=== PATIENT | male | born 1960 | race Caucasian/White ===

== ENCOUNTER 2021-12-17 05:29 | Outpatient (RCR) | payer OTHER ==
[~2021-12-17] VITALS: Ht 177.8 cm; Wt 89.5 kg
[~2021-12-17 05:29] MED LIST: GLMP2T PO; INSU100V5 SQ
== END 2021-12-20 06:49 | disposition home or self-care (01) ==
LOC: PREOP 05:29
PROVIDERS: ATTEND Surgery
DX: Z01.812 Encounter for preprocedural laboratory examination (principal); R10.9 Unspecified abdominal pain; Z20.822 Contact with and (suspected) exposure to COVID-19
CPT/HCPCS: 87635

== ENCOUNTER 2021-12-21 07:57 | Day surgery (SDC) | payer OTHER ==
[~2021-12-21] VITALS: Ht 177.8 cm; Wt 89.5 kg
[2021-12-21] VITALS (7 sets, daily range): BP systolic 97–135; BP diastolic 52–90
[2021-12-21] MEDS ORDERED: LACTATED RINGERS 1,000 ML IV ONE (08:04)
--- NOTE | 2021-12-21 08:10 | Progress Note-Pre Operative ---
Pre-Operative Progress Note H&P Reviewed The H&P was reviewed, patient examined and no changes noted. Date Seen by Provider: Dec 21, 2021 Time Seen by Provider: 08:09 Date H&P Reviewed: Dec 21, 2021 Time H&P Reviewed: 08:10 Pre-Operative Diagnosis: left sided abdominal pain JB LEUNG DO Dec 21, 2021 08:10
[2021-12-21] MEDS ORDERED: LACTATED RINGERS 1,000 ML IV STA (08:16)
[2021-12-21] MEDS ORDERED: HURRICAINE EXT TUBE (BENZOCAINE) XX PRN (08:30)
[2021-12-21] MEDS ORDERED: MIDAZOLAM 2 MG/2 ML (VERSED) VIAL ONE (09:28)
[2021-12-21] MEDS ORDERED: PROPOFOL INJECTION 50 ML IV ONE ×2 (09:28→09:50)
--- NOTE | 2021-12-21 10:28 | Progress Note-Post Operative ---
Post-Operative Progess Note Surgeon (s)/Electrical Automation Engineer (s) Surgeon JB LEUNG DO Electrical Automation Engineer: N/A Pre-Operative Diagnosis left sided abdominal pain Post-Operative Diagnosis Colon Polyps, diverticulosis Procedure & Operative Findings Date of Procedure 12/21/21 Procedure Performed/Findings EGD with biopsies Colonoscopy with snare polypectomy x2 descending colon polyps, cold biopsies porxomial simoid at mass, with simón inking, hot bx polypectomy x 2 sigmoid polyp, snare polypectomy distal sigmoid polyp Anesthesia Type per CHEESE BLENDER Estimated Blood Loss Estimated blood loss (mL): none Specimens/Packing Specimens Removed colon polyps, colon mass, antrum, ge JB LEUNG DO Dec 21, 2021 10:28
--- NOTE | 2021-12-21 10:29 | Discharge Inst-Simple/Standard ---
Discharge Inst-Standard Patient Instructions/Follow Up Plan of Care/Instructions/FU: 2 weeks Elvis Activity as Tolerated: Yes Discharge Diet: Regular Diet JB LEUNG DO Dec 21, 2021 10:29
--- NOTE | 2021-12-21 11:58 | OPERATIVE REPORT ---
DATE OF SERVICE: 12/21/2021 PREOPERATIVE DIAGNOSIS: Left-sided abdominal pain. POSTOPERATIVE DIAGNOSES: Colon polyps, diverticulosis, colon mass, left sigmoid. PROCEDURE: EGD with biopsies, colonoscopy with snare polypectomy x2 of the descending colon polyps, cold biopsies of proximal sigmoid mass with Jennie inking 3 mL, hot biopsy polypectomy x2 of sigmoid polyps and snare polypectomy of distal sigmoid polyp. SURGEON: Jb Leal DO ANESTHESIA: Per CAR FERRY CAPTAIN. ESTIMATED BLOOD LOSS: None. COMPLICATIONS: None. INDICATIONS: The patient is a 61-year-old male having left sided abdominal pain. He understands risks and benefits of procedures and wishes to proceed. Consent was signed in the chart. DESCRIPTION OF PROCEDURE: The patient was taken to the endoscopy suite, placed in left lateral recumbent position. Timeout was performed. Scope was inserted in mouth, down the esophagus, stomach and into the duodenum without difficulty. There were no polyps, masses or ulcerations within the duodenum. Scope was slowly retracted back to stomach where it was further insufflated. No polyps, masses or ulcerations. Biopsy of the antrum was obtained. Scope was retroflexed noting no other pathology. Scope was returned to its normal position, slowly withdrawn to distal esophagus. No polyps, masses or ulcerations. Biopsy of the GE junction was obtained. Scope was slowly retracted back to completely remove, noting no other pathology. Digital rectal exam was performed. No palpable polyps, masses or ulcerations. Scope was inserted in the rectum and advanced all the way to cecum with minimal difficulty. Prep was adequate with irrigation and suction. Scope was slowly retracted back. No polyps, masses or ulcerations within the cecum, ascending, transverse colon. In the sigmoid colon, two small polyps were present, these were snared and obtained for pathology. Scope was then continuously retracted back into the sigmoid colon. Also noting some diverticulosis present. There is a proximal sigmoid mass that encompassed approximately 50% of the lumen. Multiple cold biopsies were obtained. Just distal to this area, Jennie inking was performed, 1 mL in three locations for a total of 3 mL. Scope was continuously retracted back. Two more small polyps were present, which hot biopsy polypectomy was performed. Scope was then continuously retracted back. There were a larger polyp in the distal sigmoid, which snare polypectomy was performed. This was obtained for specimen. Scope was reinserted into the rectum and retroflexed in the rectum, noting no other pathology. Scope was returned to its normal position, slowly withdrawn until completely removed. The patient tolerated procedure well without any complications, taken to recovery room in stable condition. RECOMMENDATIONS: The patient will need a followup on pathology. Depending on pathology further recommendations pending. No matter what he will need a partial colon resection to remove the colonic mass. Area was tattooed. Then further recommendations pending for colonoscopy evaluation. Job ID: [id number] DocumentID: [id number] Dictated Date: 12/21/2021 10:34:34 Hair Sample Matcher Date: 12/21/2021 11:58:00 Dictated By: JB LEAL DO
--- NOTE | 2021-12-21 14:48 | Anesthesia-General Post-Op ---
MAC Patient Condition Mental Status/LOC: Same as Preop Cardiovascular: Satisfactory Nausea/Vomiting: Absent Respiratory: Satisfactory Pain: Controlled Complications: Absent Post Op Complications Complications None Follow Up Care/Instructions Patient Instructions None needed. Anesthesiology Discharge Order Discharge Order Patient is doing well, no complaints, stable vital signs, no apparent adverse anesthesia problems. No complications reported per nursing. PHAM HYDE CRNA Dec 21, 2021 14:48
== END 2021-12-21 11:20 | disposition home or self-care (01) ==
LOC: ENDO 07:57
PROVIDERS: ATTEND Surgery
DX: D12.4 Benign neoplasm of descending colon (principal); D12.5 Benign neoplasm of sigmoid colon; K63.5 Polyp of colon; K57.30 Diverticulosis of large intestine without perforation or abscess without bleeding; K20.90 Esophagitis, unspecified without bleeding; K29.70 Gastritis, unspecified, without bleeding; I10 Essential (primary) hypertension; E78.00 Pure hypercholesterolemia, unspecified; E11.9 Type 2 diabetes mellitus without complications; F17.210 Nicotine dependence, cigarettes, uncomplicated; Z79.4 Long term (current) use of insulin
CPT/HCPCS: 82947

== ENCOUNTER 2022-01-13 05:33 | Outpatient (CLI) | payer OTHER ==
[~2022-01-13] VITALS: Ht 177.8 cm; Wt 89.5 kg
== END 2022-01-13 17:44 | disposition home or self-care (01) ==
LOC: PREOP 05:33
PROVIDERS: ATTEND Surgery
DX: Z01.818 Encounter for other preprocedural examination (principal)

== ENCOUNTER 2022-01-20 05:55 | Inpatient (IN) | payer OTHER ==
[2022-01-20] VITALS (11 sets, daily range): BP systolic 102–192; BP diastolic 31–110
[~2022-01-20] VITALS: Ht 177.8 cm; Wt 89.5 kg
[2022-01-20] MEDS ORDERED: ceFAZolin 2 GM IV Premixed 50 ML IV ONE (06:45)
[2022-01-20] MEDS: LACTATED RINGERS 1,000 ML IV PRN ×2 (06:48→08:51)
[2022-01-20] MEDS ORDERED: SUFentanil CITRATE INJ 50MCG/ML 1ML AMP IV ONE (07:04)
[2022-01-20] MEDS ORDERED: MIDAZOLAM 2 MG/2 ML (VERSED) VIAL ONE (07:04)
[2022-01-20] MEDS ORDERED: LIDOCAINE PF 2% 5 ML (XYLOCAINE) VIAL ONE (07:04)
[2022-01-20] MEDS ORDERED: ONDANSETRON 4 MG/2 ML (SDV) Z0FRAN ONE (07:04)
[2022-01-20] MEDS ORDERED: proPOfol 200 MG/20 ML (DIPRIVAN) VIAL IV ONE (07:04)
[2022-01-20] MEDS ORDERED: ROCURONIUM 10 MG/ML 5 ML SYRINGE IV ONE ×2 (07:04→09:37)
[2022-01-20] MEDS ORDERED: LIDOCAINE/EPI 1%-1:200,000 (XYLOCAINE) 30 ML VIAL ONE (07:20)
--- NOTE | 2022-01-20 08:04 | Progress Note-Pre Operative ---
Pre-Operative Progress Note H&P Reviewed The H&P was reviewed, patient examined and no changes noted. Date Seen by Provider: Jan 20, 2022 Time Seen by Provider: 07:55 Date H&P Reviewed: Jan 20, 2022 Time H&P Reviewed: 07:55 Pre-Operative Diagnosis: tubular adenoma colon JB LEUNG DO Jan 20, 2022 08:04
[2022-01-20] MEDS ORDERED: metroNIDAZOLE 500MG/100ML IVPB 100 ML ONE (08:44)
[2022-01-20] MEDS ORDERED: fentaNYL INJ 250 MCG/5 ML AMP ONE (09:14)
[2022-01-20] MEDS ORDERED: meTOprolol 5 MG/5 ML (LOPRESSOR) VIAL ONE (09:30)
[2022-01-20] MEDS ORDERED: BUPIVACAINE 0.25% 30 ML (SENSORCAINE) VIAL ONE (10:16)
--- NOTE | 2022-01-20 10:39 | Progress Note-Post Operative ---
Post-Operative Progess Note Surgeon (s)/Bill Peddler (s) Surgeon JB LEUNG DO Bill Peddler: Dr. Clement Pre-Operative Diagnosis tubular adenoma colon Post-Operative Diagnosis same Procedure & Operative Findings Date of Procedure 01/20/22 Procedure Performed/Findings lap hand assisted sigmoid resection with mobilization of splenic flexure. Anesthesia Type general Estimated Blood Loss Estimated blood loss (mL): minimal Specimens/Packing Specimens Removed sigmoid colon JB LEUNG DO Jan 20, 2022 10:39
[2022-01-20] MEDS ORDERED: GLYCOPYRROLATE 0.2 MG/ML (ROBINUL) 2 ML VIAL ONE (10:47)
[2022-01-20] MEDS ORDERED: NEOSTIGMINE 3 MG/3 ML VIAL ONE (10:47)
[2022-01-20] MEDS ORDERED: SUGAMMADEX 500 MG/5 ML VIAL (BRIDION) IV ONE (10:51)
[2022-01-20] MEDS ORDERED: SEVOFLURANE (ULTANE) 15 ML INHAL SOLN ONE (10:53)
[2022-01-20] MEDS ORDERED: LABETALOL HCL 20 MG/4 ML VIAL ONE (11:06)
[2022-01-20] MEDS ORDERED: ONDANSETRON 4 MG/2 ML (SDV) Z0FRAN IVP PRN (11:15)
[2022-01-20] MEDS ORDERED: LABETALOL HCL 20 MG/4 ML VIAL IV PRN (11:15)
[2022-01-20] MEDS ORDERED: morphine INJ 10 MG/ML 1ML (SYR OR VIAL) IVP ONE (11:15)
[2022-01-20] MEDS ORDERED: morphine INJ 10 MG/ML 1ML (SYR OR VIAL) ONE (11:17)
[2022-01-20] MEDS ORDERED: RT-ALBUTEROL SULF 2.5 MG/3 ML PRE-MIX VIAL INH PRN (13:00)
[2022-01-20] MEDS: HYDROcodone/APAP 5 MG/325 MG (LORTAB) TAB PO PRN ×3 (13:05→21:54)
[2022-01-20] MEDS: LACTATED RINGERS 1,000 ML IV SCH ×3 (13:05→22:19)
[2022-01-20] MEDS: morphine INJ 4 MG/ML 1 ML (VIAL/SYRINGE) IVP PRN ×5 (13:07→23:50)
--- NOTE | 2022-01-20 13:27 | Physical Therapy Progress Note ---
Therapy Progress Note Nurse states patient has too much pain to participate currently. She gave him pain meds. Patient in bed laying on left side, with grimace on face. Will attempt evaluation tomorrow. DONNA IRELAND PT Jan 20, 2022 13:27
--- NOTE | 2022-01-20 15:18 | Consultation ---
HPI Attending Physician Rick Leal DO PCP No,Local Physician Consult Date of Admission Jan 20, 2022 at 05:55 Home Medications Home Medications Reviewed patient Home Medication Reconciliation performed by pharmacy medication reconciliations instructor adjunct surgical technician and/or nursing. Patients Allergies have been reviewed. Allergies Coded Allergies: No Known Drug Allergies (Unverified , 04/01/16) [id number]-[id number] Hx Patient Social History Drug of Choice: MARIJUANA Recent Hopitalizations: No Have you traveled recently?: No Immunizations Up To Date Tetanus Booster (TDap): Less than 5yrs Influenza Vaccine Up-to-Date: No; Not Current First/Initial COVID19 Vaccinat: 2020 Second COVID19 Vaccination Zach: 2020 Third COVID19 Vaccination Date: 2020 Physical Exam-([facility]) Physical Exam Vital Signs VS - Last 72 Hours, by Label 01/20/22 01/20/22 01/20/22 01/20/22 06:30 06:30 10:55 10:55 Temp 36.3 36.4 Pulse 88 Resp 18 12 B/P (MAP) 133/31 (65) 184/96 (125) Pulse Ox 99 97 O2 Delivery Room Air Room Air OxyMask OxyMask O2 Flow Rate 8 8 01/20/22 01/20/22 01/20/22 01/20/22 11:05 11:15 11:15 11:25 Resp 14 14 14 B/P (MAP) 192/110 (137) 165/96 (119) 150/98 (115) Pulse Ox 96 96 96 O2 Delivery OxyMask OxyMask OxyMask OxyMask O2 Flow Rate 6 6 4 2 01/20/22 01/20/22 01/20/22 01/20/22 11:30 11:35 11:45 11:55 Temp 36.2 Resp 18 16 B/P (MAP) 135/94 (108) 133/85 (101) Pulse Ox 94 92 O2 Delivery OxyMask Room Air Room Air Room Air O2 Flow Rate 2 01/20/22 01/20/22 01/20/22 12:00 12:15 12:52 Temp 36.4 36.4 Pulse 78 78 Resp 20 B/P (MAP) 102/73 (83) Pulse Ox 92 92 O2 Delivery Nasal Cannula Nasal Cannula O2 Flow Rate 2.00 2.00 Capillary Refill : Assessment/Plan Assessment/Plan (1) Tubular adenoma Status: Acute Assessment & Plan: - S/p Colectomy, ask to see patient for consult of chronic medical conditions (2) Insulin dependent diabetes mellitus Status: Chronic Assessment & Plan: -Accucheck q6hrs until eating meals, A1c pending, patient reports last A1c ~8 (3) Tobacco abuse Status: Chronic Assessment & Plan: - Discussed the importance of cessation, patient declines nicotine replacement ANTONINO DALTON MD Jan 20, 2022 15:18
[2022-01-20] MEDS: ceFAZolin 2 GM IV Premixed 50 ML IV SCH (16:34)
[2022-01-20] MEDS: metroNIDAZOLE 500MG/100ML IVPB 100 ML IV SCH ×2 (16:35→23:53)
--- NOTE | 2022-01-20 17:59 | OPERATIVE REPORT ---
DATE OF SERVICE: 01/20/2022 PREOPERATIVE DIAGNOSIS: Sigmoid tubular adenoma. POSTOPERATIVE DIAGNOSIS: Sigmoid tubular adenoma. PROCEDURE: Laparoscopic hand-assisted sigmoid resection with mobilization of splenic flexure. SURGEON: Jb Leal DO TRANSIT MECHANIC: Dr. Clement, assisted in retraction, dissection and closure. ANESTHESIA: General. ESTIMATED BLOOD LOSS: Minimal. COMPLICATIONS: None. INDICATIONS: The patient is a 61-year-old male with a polyp that was able to be removed. Pathology demonstrated tubular adenoma. He understands risks and benefits of procedure and wishes to proceed. Consent was signed in the chart. DESCRIPTION OF PROCEDURE: The patient was taken to the operating suite, was prepped and draped in sterile fashion. Surgical pause was performed. Midline incision was made for hand port. Cautery was used to dissect down through the subcutaneous tissue and the fascia was then opened. The hand port was placed. Trocar was inserted through the hand port and under direct visualization, a 12 mm trocar was placed in the right lower quadrant. A second 5 mm trocar was placed in left lower quadrant. The tattoo was visualized on the proximal portion of the sigmoid colon. The left colon was then mobilized along the white line of Toldt. This was done using cautery and blunt dissection. The splenic flexure had to be mobilized for further length for resection to be performed. LigaSure was also used for this as well. Once the colon was mobilized enough, the colon was brought out through the midline incision. A ctxr-yp-pbvy anastomosis was created using a linear PARTH-75 stapler. A crotch stitch was placed. The LigaSure was used to divide the mesentery removing the specimen. The fascia was then closed using 1-0 looped PDS. The abdomen was reinsufflated and the abdomen was inspected. No other pathology noted. The fascial closure was inspected and closed. The abdomen was then desufflated, the trocars were removed. The skin was then closed using lesia. The abdomen was washed and dried and sterile bandages were applied. The patient tolerated the procedure well without any complications. He was taken to recovery room in stable condition. Job ID: [id number] DocumentID: [id number] Dictated Date: 01/20/2022 12:52:17 Nuclear Physicist Date: 01/20/2022 17:57:47 Dictated By: JB LEAL DO
[2022-01-20] MEDS ORDERED: KETOROLAC 15 MG/ML VIAL IVP ONE (23:45)
[2022-01-21] VITALS: BP 123/64
[2022-01-21] MEDS: ceFAZolin 2 GM IV Premixed 50 ML IV SCH (00:49)
[2022-01-21] MEDS: HYDROcodone/APAP 5 MG/325 MG (LORTAB) TAB PO PRN ×4 (01:53→18:35)
[2022-01-21 04:00] VITALS: BP 120/71
[2022-01-21] MEDS: morphine INJ 4 MG/ML 1 ML (VIAL/SYRINGE) IVP PRN ×6 (04:15→23:09)
[2022-01-21 05:44] LABS: BASOPHILS # (AUTO) 0.1 10^3/uL (0.0-0.1); BASOPHILS % (AUTO) 1 % (0-10); EOSINOPHILS # (AUTO) 0.1 10^3/uL (0.0-0.3); EOSINOPHILS % (AUTO) 1 % (0-10); HEMATOCRIT 43 % (40-54); HEMOGLOBIN 14.8 g/dL (13.3-17.7); LYMPHOCYTES # (AUTO) 1.3 10^3/uL (1.0-4.0); LYMPHOCYTES % (AUTO) 12 % (12-44); MEAN CORPUSCULAR HEMOGLOBIN 30 pg (25-34); MEAN CORPUSCULAR HGB CONC 35 g/dL (32-36); MEAN CORPUSCULAR VOLUME 88 fL (80-99); MEAN PLATELET VOLUME 9.8 fL (9.0-12.2); MONOCYTES # (AUTO) 1.3 10^3/uL (0.0-1.0); MONOCYTES % (AUTO) 12 % (0-12); NEUTROPHILS # (AUTO) 8.2 10^3/uL (1.8-7.8); NEUTROPHILS % (AUTO) 75 % (42-75); PLATELET COUNT 294 10^3/uL (130-400); WHITE BLOOD COUNT 10.9 10^3/uL (4.3-11.0)
[2022-01-21 05:57] LABS: POTASSIUM 3.9 MMOL/L (3.6-5.0)
[2022-01-21 05:59] LABS: CALCIUM 8.4 MG/DL (8.5-10.1)
[2022-01-21 06:03] LABS: CREATININE SERUM 1.28 MG/DL (0.60-1.30)
--- NOTE | 2022-01-21 08:03 | Progress Note - Surgery ---
SULMA GRANGER A MED STUDENT 01/21/22 0803: Subjective Date Seen by a Provider: Jan 21, 2022 Time Seen by a Provider: 08:00 Subjective/Events-last exam Pt lying bed this morning, states his abdominal pain is an 11/10, but as the exam went on his pain decreased. Pt reports his pain is better since receiving morphine just before exam. Pt denies CP, SOA, cough, N/V or passing gas. Tolerating clear liquid diet well. Review of Systems General: No Chills, No Fatigue HEENT: No Head Aches, No Visual Changes Pulmonary: No Dyspnea, No Cough Cardiovascular: No: Chest Pain, Palpitations Gastrointestinal: Abdominal Pain; No: Nausea, Vomiting Genitourinary: No Dysuria, No Frequency Neurological: No: Weakness, Numbness Objective Exam Vital Signs Date Time Temp Pulse Resp B/P (MAP) Pulse Ox O2 Delivery O2 Flow Rate FiO2 01/21/22 07:54 36.4 115 22 89 Nasal Cannula 2.00 01/21/22 04:00 37.6 112 19 120/71 (87) 91 Nasal Cannula 2.00 01/21/22 00:00 37.2 110 21 123/64 (83) 95 Nasal Cannula 2.00 01/20/22 20:05 Nasal Cannula 1.50 01/20/22 19:24 36.2 93 18 148/95 (112) 95 Nasal Cannula 1.50 01/20/22 15:56 36.0 74 18 167/77 (107) 95 Nasal Cannula 1.50 01/20/22 12:52 36.4 78 92 01/20/22 12:15 36.4 78 20 102/73 (83) 92 Nasal Cannula 2.00 01/20/22 12:00 Nasal Cannula 2.00 01/20/22 11:55 Room Air 01/20/22 11:45 36.2 16 133/85 (101) 92 Room Air 01/20/22 11:35 18 135/94 (108) 94 Room Air 01/20/22 11:30 OxyMask 2 01/20/22 11:25 14 150/98 (115) 96 OxyMask 2 01/20/22 11:15 14 165/96 (119) 96 OxyMask 4 01/20/22 11:15 OxyMask 6 01/20/22 11:05 14 192/110 (137) 96 OxyMask 6 01/20/22 10:55 36.4 12 184/96 (125) 97 OxyMask 8 01/20/22 10:55 OxyMask 8 I & O 01/21/22 07:00 Intake Total 3450 ml Output Total 1255 ml Balance 2195 ml Capillary Refill : General Appearance: WD/WN, Anxious HEENT: PERRL/EOMI Neck: Full Range of Motion, Normal Inspection Respiratory: Chest Non Tender, No Accessory Muscle Use, No Respiratory Distress, Crackles Cardiovascular: Regular Rate, Rhythm, No Murmur Gastrointestinal: normal bowel sounds, guarding, tenderness Extremity: Normal Inspection, Normal Range of Motion Neurologic/Psychiatric: Alert, Oriented x3, Normal Mood/Affect Skin: Normal Color, Warm/Dry, Other (Midline abdominal incision dressed) Results Lab Laboratory Tests 01/20/22 10:59: Glucometer 221H 01/20/22 16:27: 01/21/22 05:25: White Blood Count 10.9, Red Blood Count 4.87, Hemoglobin 14.8, Hematocrit 43, Mean Corpuscular Volume 88, Mean Corpuscular Hemoglobin 30, Mean Corpuscular Hemoglobin Concent 35, Red Cell Distribution Width 13.4, Platelet Count 294, Mean Platelet Volume 9.8, Immature Granulocyte % (Auto) 0, Neutrophils (%) (Auto) 75, Lymphocytes (%) (Auto) 12, Monocytes (%) (Auto) 12, Eosinophils (%) (Auto) 1, Basophils (%) (Auto) 1, Neutrophils # (Auto) 8.2H, Lymphocytes # (Auto) 1.3, Monocytes # (Auto) 1.3H, Eosinophils # (Auto) 0.1, Basophils # (Auto) 0.1, Immature Granulocyte # (Auto) 0.0, Sodium Level 134L, Potassium Level 3.9, Chloride Level 102, Carbon Dioxide Level 20L, Anion Gap 12, Blood Urea Nitrogen 15, Creatinine 1.28, Estimat Glomerular Filtration Rate 63, BUN/Creatinine Ratio 12, Glucose Level 150H, Calcium Level 8.4L Assessment/Plan Assessment/Plan Assessment/Plan Tubular adenoma s/p sigmoid colon resection T2DM Tobacco Use Plan Flagyl and Cefazolin NPO IV fluids Pain management VALERIY CLEMENT DO 01/21/22 1107: Subjective Time Seen by a Provider: 10:11 Subjective/Events-last exam Pt seen and examined, states he had a rough night but is feeling better now. Denies N/V and pain better controlled. Review of Systems General: No Chills Pulmonary: No Dyspnea, No Cough Cardiovascular: No: Chest Pain, Palpitations Gastrointestinal: Abdominal Pain; No: Nausea, Vomiting Objective Exam General Appearance: Anxious Respiratory: No Accessory Muscle Use, No Respiratory Distress, Crackles Cardiovascular: Regular Rate, Rhythm, No Murmur Gastrointestinal: normal bowel sounds, guarding, tenderness, other (incision c/d/i) Assessment/Plan Assessment/Plan Assessment/Plan s/p sigmoid colon resection T2DM Tobacco Use Plan Start Clears, IV fluids, Pain management. Encourage ambulation and IS use Supervisory-Addendum Brief Verification & Attestation Participated in pt care: history, MDM, physical Personally performed: exam, history, MDM, supervision of care Care discussed with: Medical Student Procedures: n/a Verification and Attestation of Medical Student E/M Service A medical student performed and documented this service. I then reviewed and verified all information documented by the medical student and made modifications to such information, when appropriate. I personally performed a physical exam, medical decision making and then discussed any differences between the notes and made revisions as necessary to create one note. Valeriy Clement , 01/21/22 , 11:07 SULMA GRANGER MED STUDENT Jan 21, 2022 08:03 VALERIY CLEMENT DO Jan 21, 2022 11:07
[2022-01-21 08:30] VITALS: BP 132/72
--- NOTE | 2022-01-21 08:45 | Physical Therapy Evaluation ---
PT Evaluation-General Medical Diagnosis Admission Date Jan 20, 2022 at 05:55 Medical Diagnosis: sigmoid resection Onset Date: Jan 20, 2022 Therapy Diagnosis Therapy Diagnosis: impaired mobility, endurance Height/Weight Height (Feet): 5 Height (Inches): 10 Weight (Pounds): 175 Precautions Precautions/Isolations: Standard Precautions Referral Physician: Elvis Reason for Referral: Evaluation/Treatment Medical History Pertinent Medical History: DM, OA Reviewed History: Yes Social History Home: Single Level Current Living Status: Other Family Entry Into Home: Stairs Without Railing PT Steps Into Home: 1 Prior Prior Level of Function SCALE: Activities may be completed with or without assistive devices. 8-Bshhtomkzw-hexbzuy completes the activity by him/herself with no assistance from a helper. 5-Set-up or Clean-up Assistance-helper sets up or cleans up; patient completes activity. [place] assists only prior to or following the activity. 4-Supervision or Touching Assistance-helper provides verbal cues and/or touching/steadying and/or contact guard assistance as patient completes activity. Assistance may be provided throughout the activity or intermittently. 3-Partial/Moderate Assistance-helper does LESS THAN HALF the effort. [place] lifts, holds or supports trunk or limbs, but provides less than half the effort. 2-Substantial/Maximal Assistance-helper does MORE THAN HALF the effort. [place] lifts or holds trunk or limbs and provides more than half the effort. 8-Wbogvzwfb-zwczew does ALL the effort. Patient does none of the effort to complete the activity. Or, the assistance of 2 or more helpers is required for the patient to complete the activity. If activity was not attempted, code reason: 7-Patient Refused. 9-Not Applicable-not attempted and the patient did not perform the activity before the current illness, exacerbation or injury. 10-Not Attempted due to Environmental Limitations-(lack of equipment, weather restraints, etc.). 88-Not Attempted due to Medical Conditions or Safety Concerns. Bed Mobility: 6 Transfers (B,C,W/C): 6 Gait: 6 Stairs: 6 Indoor Mobility (Ambulation): Independent Stairs: Independent PT Evaluation-Current Subjective Patient in bed pre tx, agrees to PT, has unrated but severe abdominal pain, patient states he has had pain meds. Pt/Family Goals to be independent at home Objective Patient Orientation: Person, Place, Situation Attachments: Oxygen, Shea Catheter ROM/Strength ROM Lower Extremities WNL Sensory Vision: Functional Hearing: Functional Sensation Right Lower Extremit: Intact Sensation Left Lower Extremity: Intact Transfers Roll Left to Right (QC): 6 Lying to Sitting/Side of Bed(Q: 6 Sit to Stand (QC): 4 Chair/Ukq-lf-Pxtcc Xfer(QC): 4 Gait Does the Patient Walk?: Yes Mode of Locomotion: Walk Anticipated Mode of Locomotion: Walk Distance: 5' Gait Assistive Device: FWW Balance Sitting Static: Normal Sitting Dynamic: Normal Standing Static: Normal Standing Dynamic: Normal Treatment BLE seated exercises x20 (AP, LAQ) Assessment/Needs Patient in recliner post tx with nurse call, phone, tray, all needs met. Patient has impaired mobility and endurance and severe abdominal pain. Despite the pain, he doesn't need any assist with bed mobility or transfers Rehab Potential: Fair PT Women Specialist Goals Prison Goals PT Prison Goals Time Frame: Jan 28, 2022 Roll Left & Right (QC): 6 Sit to Lying (QC): 6 Lying-Sitting on Side/Bed(QC): 6 Sit to Stand (QC): 6 Chair/Bag-ow-Bannq Xfer(QC): 6 Walk 10 feet (QC): 6 Walk 50ft with 2 Turns (QC): 6 Walk 150 ft (QC): 6 PT Plan Problem List Problem List: Activity Tolerance, Functional Strength, Safety, Balance, Gait, Transfer, ROM Treatment/Plan Treatment Plan: Continue Plan of Care Treatment Plan: Education, Functional Activity Humberto, Functional Strength, Ga it, Safety, Therapeutic Exercise, Transfers Treatment Duration: Jan 28, 2022 Frequency: 6 times per week Estimated Hrs Per Day: .25 hour per day Patient and/or Family Agrees t: Yes Safety Risks/Education Patient Education: Gait Training, Transfer Techniques, Correct Positioning, Safety Issues Teaching Recipient: Patient Teaching Methods: Demonstration, Discussion Response to Teaching: Reinforcement Needed Discharge Recommendations Plan Patient will perform bed mobility and transfer training, balance and endurance training, functional strengthening, stair training, gait training, and education, to improve functional mobility and independence at home. Therapy Discharge Recommendati: Home & Family, Post Acute PT Time/GCodes Time In: 825 Time Out: 835 Total Billed Treatment Time: 10 Total Billed Treatment 1 visit EVL 10' DONNA IRELAND PT Jan 21, 2022 08:45
--- NOTE | 2022-01-21 10:50 | Anesthesia-General Post-Op ---
General Patient Condition Mental Status/LOC: Same as Preop Cardiovascular: Satisfactory Nausea/Vomiting: Absent Respiratory: Satisfactory Pain: Controlled Complications: Absent Post Op Complications Complications None Follow Up Care/Instructions Patient Instructions None needed. Anesthesia/Patient Condition Patient Condition Patient is doing well, ambulating, C/O some abdominal pain which is controlled and expected, stable vital signs, no apparent adverse anesthesia problems. ELO CONTEH DO Jan 21, 2022 10:50
[2022-01-21] MEDS: LACTATED RINGERS 1,000 ML IV SCH ×2 (11:03→18:46)
[2022-01-21 11:25] VITALS: BP 141/78
--- NOTE | 2022-01-21 11:31 | Progress Note ---
Subjective Subjective/Events-last exam Patient is doing better this AM. States that he is still having some shooting pain but better. He was up in chair this AM. No BM or flatus. Review of Systems Pulmonary: No Dyspnea, No Cough Cardiovascular: No: Chest Pain, Palpitations, Edema Gastrointestinal: Abdominal Pain; No: Nausea, Vomiting Objective Exam Last Set of Vital Signs Vital Signs Date Time Temp Pulse Resp B/P (MAP) Pulse Ox O2 Delivery O2 Flow Rate FiO2 01/21/22 09:28 Nasal Cannula 1.50 01/21/22 08:30 132/72 (92) 92 01/21/22 07:54 36.4 115 22 Capillary Refill : I&O Intake and Output 01/21/22 00:00 Intake Total 2900 ml Output Total 905 ml Balance 1995 ml Intake Oral 600 ml IV Total 2300 ml Output Urine Total 905 ml General: Alert, Oriented X3, Cooperative, No Acute Distress Lungs: Normal Air Movement, Other (basliar wheezing, normal work of breathing) Heart: Regular Rate, No Murmurs Abdomen: Soft, Other (incisional ttp, no rebound) Extremities: No Edema, No Tenderness/Swelling Neuro: Normal Speech Results/Procedures Lab Laboratory Tests 01/20/22 16:27: 01/21/22 05:25: White Blood Count 10.9, Red Blood Count 4.87, Hemoglobin 14.8, Hematocrit 43, Mean Corpuscular Volume 88, Mean Corpuscular Hemoglobin 30, Mean Corpuscular Hemoglobin Concent 35, Red Cell Distribution Width 13.4, Platelet Count 294, Mean Platelet Volume 9.8, Immature Granulocyte % (Auto) 0, Neutrophils (%) (Auto) 75, Lymphocytes (%) (Auto) 12, Monocytes (%) (Auto) 12, Eosinophils (%) (Auto) 1, Basophils (%) (Auto) 1, Neutrophils # (Auto) 8.2H, Lymphocytes # (Auto) 1.3, Monocytes # (Auto) 1.3H, Eosinophils # (Auto) 0.1, Basophils # (Auto) 0.1, Immature Granulocyte # (Auto) 0.0, Sodium Level 134L, Potassium Level 3.9, Chloride Level 102, Carbon Dioxide Level 20L, Anion Gap 12, Blood Urea Nitrogen 15, Creatinine 1.28, Estimat Glomerular Filtration Rate 63, BUN/Creatinine Ratio 12, Glucose Level 150H, Calcium Level 8.4L Microbiology 01/20/22 MRSA Screen - Final, Complete MRSA not isolated Assessment/Plan Assessment/Plan (1) Tubular adenoma Status: Acute Assessment & Plan: - S/p Colectomy, ask to see patient for consult of chronic medical conditions (2) Insulin dependent diabetes mellitus Status: Chronic Assessment & Plan: -Accucheck q6hrs until eating meals, A1c pending, patient reports last A1c ~8 01/21: A1c pending, continue accucheck q6hrs while NPO (3) Tobacco abuse Status: Chronic Assessment & Plan: - Discussed the importance of cessation, patient declines nicotine replacement ANTONINO DALTON MD Jan 21, 2022 11:31
[2022-01-21] MEDS: ONDANSETRON 4 MG/2 ML (SDV) Z0FRAN IVP PRN ×2 (12:48→18:38)
[2022-01-21] MEDS ORDERED: PROMETHAZINE INJ 25 MG/ML (PHENERGAN) AMP IVP ONE (13:30)
[2022-01-21] MEDS ORDERED: NICOTINE 14 MG (NICODERM) PATCH TD ONE (14:30)
[2022-01-21 15:51] VITALS: BP 184/86
[2022-01-21] MEDS: oxyCODONE/APAP 10/325MG (PERCOCET 10) TABLET PO PRN (19:47)
[2022-01-21 20:09] VITALS: BP 156/74
[2022-01-22] VITALS: BP 134/85
[2022-01-22] MEDS: LACTATED RINGERS 1,000 ML IV SCH ×3 (00:27→16:41)
[2022-01-22 04:00] VITALS: BP 141/75
[2022-01-22] MEDS: oxyCODONE/APAP 10/325MG (PERCOCET 10) TABLET PO PRN ×3 (04:11→17:37)
[2022-01-22] MEDS: morphine INJ 4 MG/ML 1 ML (VIAL/SYRINGE) IVP PRN ×4 (05:43→23:59)
--- NOTE | 2022-01-22 06:14 | Progress Note - Hospitalist ---
Subjective HPI/CC On Admission Date Seen by Provider: Jan 22, 2022 Time Seen by Provider: 11:00 Subjective/Events-last exam Patient doing well Pain controlled Walked with therapy Shea catheter still in place Blood sugars better Awaiting ileus to resolve Review of Systems General: Fatigue, Malaise Gastrointestinal: Abdominal Pain Objective Exam Vital Signs Vital Signs Date Time Temp Pulse Resp B/P (MAP) Pulse Ox O2 Delivery O2 Flow Rate FiO2 01/23/22 04:00 36.1 106 17 138/88 (105) 96 Nasal Cannula 5.00 Capillary Refill : General Appearance: No Apparent Distress, WD/WN, Anxious, Chronically ill Respiratory: Lungs Clear, Normal Breath Sounds Cardiovascular: Regular Rate, Rhythm Neurologic/Psychiatric: Alert, Oriented x3 Results/Procedures Lab Laboratory Tests 01/22/22 06:26 Patient resulted labs reviewed. Assessment/Plan Assessment and Plan Assess & Plan/Chief Complaint Assessment: Status post tubular adenoma resection Postop ileus Diabetes Hyponatremia Plan: Monitor sugar Monitor labs Supportive care KADI PAYNE DO Jan 22, 2022 06:14
[2022-01-22 06:58] LABS: BASOPHILS # (AUTO) 0.1 10^3/uL (0.0-0.1); BASOPHILS % (AUTO) 0 % (0-10); EOSINOPHILS # (AUTO) 0.1 10^3/uL (0.0-0.3); EOSINOPHILS % (AUTO) 1 % (0-10); HEMATOCRIT 42 % (40-54); HEMOGLOBIN 14.3 g/dL (13.3-17.7); LYMPHOCYTES # (AUTO) 1.2 10^3/uL (1.0-4.0); LYMPHOCYTES % (AUTO) 9 % (12-44); MEAN CORPUSCULAR HEMOGLOBIN 30 pg (25-34); MEAN CORPUSCULAR HGB CONC 34 g/dL (32-36); MEAN CORPUSCULAR VOLUME 90 fL (80-99); MONOCYTES # (AUTO) 1.7 10^3/uL (0.0-1.0); MONOCYTES % (AUTO) 13 % (0-12); NEUTROPHILS # (AUTO) 10.1 10^3/uL (1.8-7.8); NEUTROPHILS % (AUTO) 76 % (42-75); PLATELET COUNT 292 10^3/uL (130-400); WHITE BLOOD COUNT 13.2 10^3/uL (4.3-11.0)
[2022-01-22 07:02] LABS: ALBUMIN 3.3 GM/DL (3.2-4.5)
[2022-01-22 07:03] LABS: POTASSIUM 3.9 MMOL/L (3.6-5.0)
[2022-01-22 07:05] LABS: TOTAL PROTEIN 6.1 GM/DL (6.4-8.2)
[2022-01-22 07:07] LABS: BILIRUBIN,TOTAL 1.2 MG/DL (0.1-1.0)
[2022-01-22 07:09] LABS: CREATININE SERUM 1.13 MG/DL (0.60-1.30)
[2022-01-22 07:35] VITALS: BP 130/77
[2022-01-22] MEDS: NICOTINE 14 MG (NICODERM) PATCH TD SCH (08:32)
[2022-01-22] MEDS: NICOTINE PATCH REMOVAL TP SCH (08:38)
--- NOTE | 2022-01-22 10:40 | Progress Note ---
Subjective Date Seen by a Provider: Jan 22, 2022 Time Seen by a Provider: 09:50 Subjective/Events-last exam Patient seen with Dr. Vallecillo. Patient reports ok. Still having abdominal pain but tolerable. Denies any N/V, Fever/chills. No flatus or BM yet. Tolerating clear liquid diet and ambulating. Objective Exam Vital Signs Date Time Temp Pulse Resp B/P (MAP) Pulse Ox O2 Delivery O2 Flow Rate FiO2 01/22/22 09:43 Nasal Cannula 5.00 01/22/22 09:38 93 Nasal Cannula 5.00 01/22/22 07:35 35.8 104 20 130/77 (94) 93 Nasal Cannula 5.00 01/22/22 04:00 36.0 108 20 141/75 (97) 94 Nasal Cannula 5.00 01/22/22 00:00 37.4 119 20 134/85 (101) 93 Nasal Cannula 5.00 01/21/22 20:09 36.0 123 20 156/74 (101) 92 Nasal Cannula 5.00 01/21/22 20:01 Nasal Cannula 5.00 01/21/22 19:36 Nasal Cannula 5.00 01/21/22 15:51 37.4 120 18 184/86 (118) 91 Nasal Cannula 5.00 01/21/22 14:42 92 Nasal Cannula 5.00 01/21/22 11:25 36.5 109 18 141/78 (99) 90 Nasal Cannula 3.00 I & O 01/22/22 07:00 Intake Total 1920 ml Output Total 2300 ml Balance -380 ml Capillary Refill : General Appearance: No Apparent Distress, WD/WN Neck: Normal Inspection, Supple Respiratory: No Accessory Muscle Use, No Respiratory Distress Cardiovascular: Regular Rate, Rhythm, No Edema Gastrointestinal: soft, distended, tenderness Extremity: Normal Inspection, Normal Range of Motion Neurologic/Psychiatric: Alert, Oriented x3 Skin: Normal Color, Warm/Dry, Other (Abdominal incisions C/D/I with no signs of infection.) Results Lab Laboratory Tests 01/22/22 06:26: White Blood Count 13.2H, Red Blood Count 4.72, Hemoglobin 14.3, Hematocrit 42, Mean Corpuscular Volume 90, Mean Corpuscular Hemoglobin 30, Mean Corpuscular Hemoglobin Concent 34, Red Cell Distribution Width 13.4, Platelet Count 292, Mean Platelet Volume 10.0, Immature Granulocyte % (Auto) 1, Neutrophils (%) (Auto) 76H, Lymphocytes (%) (Auto) 9L, Monocytes (%) (Auto) 13H, Eosinophils (%) (Auto) 1, Basophils (%) (Auto) 0, Neutrophils # (Auto) 10.1H, Lymphocytes # (Auto) 1.2, Monocytes # (Auto) 1.7H, Eosinophils # (Auto) 0.1, Basophils # (Auto) 0.1, Immature Granulocyte # (Auto) 0.1, Sodium Level 133L, Potassium Level 3.9, Chloride Level 101, Carbon Dioxide Level 20L, Anion Gap 12, Blood Urea Nitrogen 9, Creatinine 1.13, Estimat Glomerular Filtration Rate 73, BUN/Creatinine Ratio 8, Glucose Level 149H, Calcium Level 9.0, Corrected Calcium 9.6, Total Bilirubin 1.2H, Aspartate Amino Transf (AST/SGOT) 18, Alanine Am inotransferase (ALT/SGPT) 11, Alkaline Phosphatase 86, Total Protein 6.1L, Albumin 3.3, Thyroid Stimulating Hormone (TSH) 1.71 Microbiology 01/20/22 MRSA Screen - Final, Complete MRSA not isolated Assessment/Plan Assessment/Plan Assess & Plan/Chief Complaint A 61 year old male who is s/p sigmoid colon resection, T2DM, Tobacco Use VSS WBC 13.2 - will monitor Plan Continue Clears, IV fluids, Pain management. Encourage ambulation and IS use Will advance diet once patient has more bowel function SELVIN TRAN APRN Jan 22, 2022 10:40
--- NOTE | 2022-01-22 11:27 | Physical Therapy Daily Note ---
PT Daily Note-Current Subjective Pt. in bed and states he would like to ambulate. Rates pain 7/10 in abdomen, nurse present and aware for pain meds following ambulation. Mental Status Patient Orientation: Person, Place, Time, Situation Attachments: Oxygen, Shea Catheter, IV Transfers SCALE: Activities may be completed with or without assistive devices. 3-Rivikvzknd-fpfmxxb completes the activity by him/herself with no assistance from a helper. 5-Set-up or Clean-up Assistance-helper sets up or cleans up; patient completes activity. [place] assists only prior to or following the activity. 4-Supervision or Touching Assistance-helper provides verbal cues and/or touching/steadying and/or contact guard assistance as patient completes activity. Assistance may be provided throughout the activity or intermittently. 3-Partial/Moderate Assistance-helper does LESS THAN HALF the effort. [place] lifts, holds or supports trunk or limbs, but provides less than half the effort. 2-Substantial/Maximal Assistance-helper does MORE THAN HALF the effort. [place] lifts or holds trunk or limbs and provides more than half the effort. 0-Zjjmynsqn-jhfbxh does ALL the effort. Patient does none of the effort to complete the activity. Or, the assistance of 2 or more helpers is required for the patient to complete the activity. If activity was not attempted, code reason: 7-Patient Refused. 9-Not Applicable-not attempted and the patient did not perform the activity before the current illness, exacerbation or injury. 10-Not Attempted due to Environmental Limitations-(lack of equipment, weather restraints, etc.). 88-Not Attempted due to Medical Conditions or Safety Concerns. Lying to Sitting/Side of Bed(Q: 4 Sit to Stand (QC): 4 Weight Bearing Right Lower Extremity: Right Full Weight Bearing Left Lower Extremity: Left Full Weight Bearing Gait Training Does the Patient Walk?: Yes Distance: 100 ft Gait Persons Needed: 1 Gait Assistive Device: FWW slow but steady gait Treatments gait training Assessment Current Status: Good Progress Able to increase ambulation distance today and patient was steady with use of FWW. He did well despite high pain levels in abdomen. Pt. in bedside chair post session with call light and all needs met. PT Nursing Home Goals Nursing Home Goals PT Nursing Home Goals Time Frame: Jan 28, 2022 Roll Left & Right (QC): 6 Sit to Lying (QC): 6 Lying-Sitting on Side/Bed(QC): 6 Sit to Stand (QC): 6 Chair/Hgn-gq-Yenbz Xfer(QC): 6 Walk 10 feet (QC): 6 Walk 50ft with 2 Turns (QC): 6 Walk 150 ft (QC): 6 PT Plan Treatment/Plan Treatment Plan: Continue Plan of Care Treatment Plan: Education, Functional Activity Humberto, Functional Strength, Gait, Safety, Therapeutic Exercise, Transfers Treatment Duration: Jan 28, 2022 Frequency: 6 times per week Estimated Hrs Per Day: .25 hour per day Patient and/or Family Agrees t: Yes Time/GCodes Time In: 830 Time Out: 08 Total Billed Treatment Time: 16 Total Billed Treatment 1, GT 16' LEYDA LO PT Jan 22, 2022 11:27
[2022-01-22 11:33] VITALS: BP 158/83
[2022-01-22 15:57] VITALS: BP 136/85
[2022-01-22 20:00] VITALS: BP 145/78
[2022-01-23] VITALS: BP 169/95
[2022-01-23] MEDS: LACTATED RINGERS 1,000 ML IV SCH ×2 (00:03→07:54)
[2022-01-23] MEDS: morphine INJ 4 MG/ML 1 ML (VIAL/SYRINGE) IVP PRN ×5 (03:01→23:48)
[2022-01-23 04:00] VITALS: BP 138/88
[2022-01-23 06:00] LABS: HEMATOCRIT 40 % (40-54); HEMOGLOBIN 13.8 g/dL (13.3-17.7); MEAN CORPUSCULAR HEMOGLOBIN 31 pg (25-34); MEAN CORPUSCULAR HGB CONC 35 g/dL (32-36); MEAN CORPUSCULAR VOLUME 89 fL (80-99); PLATELET COUNT 281 10^3/uL (130-400); WHITE BLOOD COUNT 11.1 10^3/uL (4.3-11.0)
[2022-01-23 06:09] LABS: ALBUMIN 3.2 GM/DL (3.2-4.5)
[2022-01-23 06:11] LABS: TOTAL PROTEIN 6.2 GM/DL (6.4-8.2)
[2022-01-23 06:13] LABS: BILIRUBIN,TOTAL 0.7 MG/DL (0.1-1.0)
--- NOTE | 2022-01-23 06:53 | Progress Note - Hospitalist ---
Subjective HPI/CC On Admission Date Seen by Provider: Jan 23, 2022 Time Seen by Provider: 11:45 Subjective/Events-last exam Patient doing well Bowels are moving We will Hep-Lock IV fluid No pain Review of Systems General: Fatigue Gastrointestinal: Abdominal Pain Objective Exam Vital Signs Vital Signs Date Time Temp Pulse Resp B/P (MAP) Pulse Ox O2 Delivery O2 Flow Rate FiO2 01/24/22 03:56 36.3 105 18 133/75 (94) 94 Nasal Cannula 5.00 Capillary Refill : General Appearance: No Apparent Distress, WD/WN, Chronically ill Respiratory: Lungs Clear, Normal Breath Sounds Cardiovascular: Regular Rate, Rhythm Neurologic/Psychiatric: Alert, Oriented x3, No Motor/Sensory Deficits, Normal Mood/Affect Results/Procedures Lab Laboratory Tests 01/23/22 05:25 Patient resulted labs reviewed. Assessment/Plan Assessment and Plan Assess & Plan/Chief Complaint Assessment: Status post tubular adenoma resection Postop ileus Diabetes Hyponatremia Plan: Monitor sugar Monitor labs Supportive care 01/23/2022: Supportive care Monitor sugar KADI PAYNE DO Jan 23, 2022 06:53
[2022-01-23 07:46] VITALS: BP 167/98
[2022-01-23] MEDS: NICOTINE PATCH REMOVAL TP SCH (07:53)
[2022-01-23] MEDS: NICOTINE 14 MG (NICODERM) PATCH TD SCH (07:54)
--- NOTE | 2022-01-23 10:10 | Progress Note ---
Subjective Date Seen by a Provider: Jan 23, 2022 Time Seen by a Provider: 09:10 Subjective/Events-last exam Patient seen with Dr. Vallecillo. Patient reports doing well. Pain improved. Had BM this AM. No N/V, fever/chills. Tolerating clear liquid diet. Shea in place. Objective Exam Vital Signs Date Time Temp Pulse Resp B/P (MAP) Pulse Ox O2 Delivery O2 Flow Rate FiO2 01/23/22 07:46 36.4 107 17 167/98 (121) 96 Nasal Cannula 5.00 01/23/22 04:00 36.1 106 17 138/88 (105) 96 Nasal Cannula 5.00 01/23/22 00:00 37.4 124 19 169/95 (119) 97 Nasal Cannula 5.00 01/22/22 20:05 Nasal Cannula 5.00 01/22/22 20:00 35.5 119 20 145/78 (100) 93 Nasal Cannula 5.00 01/22/22 19:23 Nasal Cannula 5.00 01/22/22 15:57 36.2 109 20 136/85 (102) 96 Nasal Cannula 5.00 01/22/22 11:33 36.1 111 20 158/83 (108) 92 Nasal Cannula 5.00 I & O 01/23/22 07:00 Intake Total 2810 ml Output Total 3695 ml Balance -885 ml Capillary Refill : General Appearance: No Apparent Distress, WD/WN Neck: Normal Inspection, Supple Respiratory: No Accessory Muscle Use, No Respiratory Distress Cardiovascular: Regular Rate, Rhythm, No Edema Gastrointestinal: normal bowel sounds, soft, tenderness Extremity: Normal Inspection, Normal Range of Motion Neurologic/Psychiatric: Alert, Oriented x3 Skin: Normal Color, Warm/Dry, Other (Abdominal Incisions C/D/I with no signs of infection.) Results Lab Laboratory Tests 01/23/22 05:25: White Blood Count 11.1H, Red Blood Count 4.50, Hemoglobin 13.8, Hematocrit 40, Mean Corpuscular Volume 89, Mean Corpuscular Hemoglobin 31, Mean Corpuscular Hemoglobin Concent 35, Red Cell Distribution Width 13.3, Platelet Count 281, Mean Platelet Volume 10.0, Sodium Level 131L, Potassium Level 4.0, Chloride Level 100, Carbon Dioxide Level 20L, Anion Gap 11, Blood Urea Nitrogen 7, Creatinine 1.00, Estimat Glomerular Filtration Rate 85, BUN/Creatinine Ratio 7, Glucose Level 138H, Calcium Level 9.0, Corrected Calcium 9.6, Total Bilirubin 0.7, Aspartate Amino Transf (AST/SGOT) 13, Alanine Aminotransferase (ALT/SGPT) 9, Alkaline Phosphatase 84, Total Protein 6.2L, Albumin 3.2 Microbiology 01/20/22 MRSA Screen - Final, Complete MRSA not isolated Assessment/Plan Assessment/Plan Assess & Plan/Chief Complaint A 61 year old male who is s/p sigmoid colon resection, T2DM, Tobacco Use VSS WBC 11.1 - will monitor Plan IV fluids, Pain management. Encourage ambulation and IS use Will advance diet to DYS2 SELVIN Allan PREMIUM CANCELLATION CLERK Jan 23, 2022 10:10
[2022-01-23 11:16] VITALS: BP 151/82
[2022-01-23] MEDS: oxyCODONE/APAP 10/325MG (PERCOCET 10) TABLET PO PRN (13:02)
[2022-01-23 16:00] VITALS: BP 173/84
[2022-01-23 20:00] VITALS: BP 162/90
[2022-01-24] VITALS: BP 147/72
[2022-01-24 02:11] VITALS: BP 147/72
[2022-01-24] MEDS: morphine INJ 4 MG/ML 1 ML (VIAL/SYRINGE) IVP PRN ×2 (02:50→06:34)
[2022-01-24 03:56] VITALS: BP 133/75
[2022-01-24 05:18] LABS: HEMATOCRIT 43 % (40-54); HEMOGLOBIN 14.7 g/dL (13.3-17.7); MEAN CORPUSCULAR HEMOGLOBIN 30 pg (25-34); MEAN CORPUSCULAR HGB CONC 34 g/dL (32-36); MEAN CORPUSCULAR VOLUME 88 fL (80-99); MEAN PLATELET VOLUME 9.9 fL (9.0-12.2); PLATELET COUNT 364 10^3/uL (130-400); WHITE BLOOD COUNT 11.1 10^3/uL (4.3-11.0)
[2022-01-24 05:28] LABS: ALBUMIN 3.4 GM/DL (3.2-4.5); POTASSIUM 3.6 MMOL/L (3.6-5.0)
[2022-01-24 05:29] LABS: CALCIUM 9.3 MG/DL (8.5-10.1)
[2022-01-24 05:30] LABS: TOTAL PROTEIN 6.7 GM/DL (6.4-8.2)
[2022-01-24 05:32] LABS: BILIRUBIN,TOTAL 0.7 MG/DL (0.1-1.0)
[2022-01-24 05:34] LABS: CREATININE SERUM 0.94 MG/DL (0.60-1.30)
--- NOTE | 2022-01-24 07:04 | Progress Note - Hospitalist ---
Subjective HPI/CC On Admission Date Seen by Provider: Jan 24, 2022 Time Seen by Provider: 10:00 Subjective/Events-last exam Pt is doing a lot better No pain is reported except for when he moves a lot Discharge is planned as long as he doesn't require a lot of Morphine Checked meds and labs Hep locked IV fluid yesterday Review of Systems General: Fatigue, Malaise Gastrointestinal: Abdominal Pain Objective Exam Vital Signs Vital Signs Date Time Temp Pulse Resp B/P (MAP) Pulse Ox O2 Delivery O2 Flow Rate FiO2 01/24/22 15:30 36.5 100 18 154/82 93 Room Air 01/24/22 12:00 Capillary Refill : General Appearance: No Apparent Distress, WD/WN, Chronically ill Respiratory: Lungs Clear, Normal Breath Sounds Cardiovascular: Regular Rate, Rhythm Neurologic/Psychiatric: Alert, Oriented x3 Results/Procedures Lab Laboratory Tests 01/24/22 04:51 Patient resulted labs reviewed. Assessment/Plan Assessment and Plan Assess & Plan/Chief Complaint Assessment: Status post tubular adenoma resection Postop ileus Diabetes Hyponatremia Plan: Monitor sugar Monitor labs Supportive care 01/23/2022: Supportive care Monitor sugar 01/24/2022: Discharge home KADI PAYNE DO Jan 24, 2022 07:04
--- NOTE | 2022-01-24 07:23 | Progress Note - Surgery ---
ASHELYCOLTONSULMA A MED STUDENT 01/24/22 0723: Subjective Date Seen by a Provider: Jan 24, 2022 Time Seen by a Provider: 07:15 Subjective/Events-last exam Pt lying in bed awake this morning, states his abdominal pain is a 6/10. Reports that the oxycodone does help, but sometimes the pain is severe enough that he needs morphine. States the morphine works quicker. Pt reports he had a liquid BM this morning around 0200 and is passing gas. Confirms tolerating diet well. Pt reports he is getting up and walking down the barba three times daily and using his IS occasionally. Denies fever, chills, CP, palpitations, SOA, cough, dysuria. Review of Systems General: No Chills, No Fatigue HEENT: No Head Aches, No Visual Changes Pulmonary: No Dyspnea, No Cough Cardiovascular: No: Chest Pain Gastrointestinal: Abdominal Pain; No: Nausea, Vomiting Genitourinary: No Dysuria, No Frequency Neurological: No: Weakness, Numbness Objective Exam Vital Signs Date Time Temp Pulse Resp B/P (MAP) Pulse Ox O2 Delivery O2 Flow Rate FiO2 01/24/22 03:56 36.3 105 18 133/75 (94) 94 Nasal Cannula 5.00 01/24/22 02:11 35.6 108 97 01/24/22 00:00 35.6 108 18 147/72 (97) 97 Nasal Cannula 5.00 01/23/22 20:00 36.7 107 22 162/90 (114) 97 Nasal Cannula 5.00 01/23/22 19:31 Nasal Cannula 5.00 01/23/22 16:00 36.3 117 22 173/84 (113) 95 Nasal Cannula 5.00 01/23/22 11:16 36.0 107 18 151/82 (105) 97 Nasal Cannula 5.00 01/23/22 09:00 96 Nasal Cannula 5.00 01/23/22 07:46 36.4 107 17 167/98 (121) 96 Nasal Cannula 5.00 I & O 01/24/22 07:00 Intake Total 1480 ml Output Total 1150 ml Balance 330 ml Capillary Refill : General Appearance: No Apparent Distress, WD/WN HEENT: PERRL/EOMI Neck: Normal Inspection, Supple Respiratory: Lungs Clear, Normal Breath Sounds Cardiovascular: Regular Rate, Rhythm Gastrointestinal: normal bowel sounds, soft, tenderness (around incision) Extremity: Normal Inspection, Normal Range of Motion Neurologic/Psychiatric: Alert, Oriented x3, Normal Mood/Affect Skin: Normal Color, Warm/Dry, Other (Abdominal Incisions C/D/I with no signs of infection.) Results Lab Laboratory Tests 01/24/22 04:51: White Blood Count 11.1H, Red Blood Count 4.89, Hemoglobin 14.7, Hematocrit 43, Mean Corpuscular Volume 88, Mean Corpuscular Hemoglobin 30, Mean Corpuscular Hemoglobin Concent 34, Red Cell Distribution Width 13.3, Platelet Count 364, Mean Platelet Volume 9.9, Sodium Level 133L, Potassium Level 3.6, Chloride Level 100, Carbon Dioxide Level 18L, Anion Gap 15H, Blood Urea Nitrogen 13, Creatinine 0.94, Estimat Glomerular Filtration Rate 91, BUN/Creatinine Ratio 14, Glucose Level 160H, Calcium Level 9.3, Corrected Calcium 9.8, Total Bilirubin 0.7, Aspartate Amino Transf (AST/SGOT) 15, Alanine Aminotransferase (ALT/SGPT) 11, Alkaline Phosphatase 94, Total Protein 6.7, Albumin 3.4 Microbiology 01/20/22 MRSA Screen - Final, Complete MRSA not isolated Assessment/Plan Assessment/Plan Assessment/Plan s/p sigmoid colon resection for tubular adenoma T2DM Tobacco use Leukocytosis Dysphagia 2 diet, oral pain control-d/c morphine, glucose control, encouraged ambulation and use of IS. Continue nicotine patch, encouraged smoking cessation. Leukocytosis remained steady at 11.1 with no fever or signs of infection. JB LEAL DO 01/25/221922: Subjective Subjective/Events-last exam Pain better controlled today. Tolerating diet. Passing flatus and bm. Ambulating and using IS. Denies n/v fever sweats chills shortness of breath or chest pain at this time. Objective Exam General Appearance: No Apparent Distress, WD/WN HEENT: PERRL/EOMI, Normal ENT Inspection Neck: Full Range of Motion, Normal Inspection, Supple Respiratory: Chest Non Tender, No Accessory Muscle Use, No Respiratory Distress Cardiovascular: Regular Rate, Rhythm, No JVD Gastrointestinal: normal bowel sounds, soft, tenderness (around incision c/d/i) Extremity: Normal Inspection, Normal Range of Motion Neurologic/Psychiatric: Alert, Oriented x3 Skin: Normal Color, Warm/Dry Lymphatic: No Adenopathy Assessment/Plan Assessment/Plan Assessment/Plan s/p sigmoid colon resection for tubular adenoma T2DM Tobacco use Leukocytosis Diet as tolerates oral pain control-d/c morphine, glucose control, encouraged ambulation and use of IS. Continue nicotine patch, encouraged smoking cessation. Leukocytosis remained steady at 11.1 with no fever or signs of infection. If feeling well today likely dc home. Patient agrees with plan. Supervisory-Addendum Brief Verification & Attestation Participated in pt care: history, MDM, physical Personally performed: exam, history, MDM, supervision of care Care discussed with: Medical Student Procedures: n/a Results interpretation: Verified all documentation Verification and Attestation of Medical Student E/M Service A medical student performed and documented this service in my presence. I reviewed and verified all information documented by the medical student and made modifications to such information, when appropriate. I personally performed the physical exam and medical decision making. Jb Leal, Jan 24, 2022,19:22 SULMA GRANGER MED STUDENT Jan 24, 2022 07:23 JB LEAL DO Jan 25, 2022 19:23
[2022-01-24 08:00] VITALS: BP 146/89
[2022-01-24] MEDS: NICOTINE 14 MG (NICODERM) PATCH TD SCH (08:33)
[2022-01-24] MEDS: NICOTINE PATCH REMOVAL TP SCH (08:34)
[2022-01-24] MEDS: oxyCODONE/APAP 10/325MG (PERCOCET 10) TABLET PO PRN ×2 (08:38→15:07)
--- NOTE | 2022-01-24 09:55 | Physical Therapy Daily Note ---
PT Daily Note-Current Subjective Pt in BR upon arrival. Pt agrees to PT. Pain Numeric Pain Scale: 6 Location: Incisional Location Body Site: Abdomen Pain Description: Ache Mental Status Patient Orientation: Person, Place, Situation Transfers SCALE: Activities may be completed with or without assistive devices. 3-Gdpzqslghw-qlgazwy completes the activity by him/herself with no assistance from a helper. 5-Set-up or Clean-up Assistance-helper sets up or cleans up; patient completes activity. [place] assists only prior to or following the activity. 4-Supervision or Touching Assistance-helper provides verbal cues and/or touching/steadying and/or contact guard assistance as patient completes activity. Assistance may be provided throughout the activity or intermittently. 3-Partial/Moderate Assistance-helper does LESS THAN HALF the effort. [place] lifts, holds or supports trunk or limbs, but provides less than half the effort. 2-Substantial/Maximal Assistance-helper does MORE THAN HALF the effort. [place] lifts or holds trunk or limbs and provides more than half the effort. 5-Axkfwfpgx-kiikqz does ALL the effort. Patient does none of the effort to complete the activity. Or, the assistance of 2 or more helpers is required for the patient to complete the activity. If activity was not attempted, code reason: 7-Patient Refused. 9-Not Applicable-not attempted and the patient did not perform the activity before the current illness, exacerbation or injury. 10-Not Attempted due to Environmental Limitations-(lack of equipment, weather restraints, etc.). 88-Not Attempted due to Medical Conditions or Safety Concerns. Sit to Stand (QC): 6 Weight Bearing Right Lower Extremity: Right Full Weight Bearing Left Lower Extremity: Left Full Weight Bearing Gait Training Does the Patient Walk?: Yes Distance: 20' Walk 10 feet (QC): 6 Gait Assistive Device: None Treatments Pt is able to amb. to BR and back. Pt can get in & out of bed as needed. Pt is limited only by pain. Pt declines walk and EX at this time. All needs met, call light in hand. Assessment Current Status: Good Progress Pt is able to complete TF well amd amb. as needed. Pt reports if pain is managed by pain med only instead of injection than may go home today. PT Assisted Goals Assisted Goals PT Pta Goals Time Frame: Jan 28, 2022 Roll Left & Right (QC): 6 Sit to Lying (QC): 6 Lying-Sitting on Side/Bed(QC): 6 Sit to Stand (QC): 6 Chair/Wna-se-Fddxo Xfer(QC): 6 Walk 10 feet (QC): 6 Walk 50ft with 2 Turns (QC): 6 Walk 150 ft (QC): 6 PT Plan Treatment/Plan Treatment Plan: Continue Plan of Care Treatment Plan: Education, Functional Activity Humberto, Functional Strength, Gait, Safety, Therapeutic Exercise, Transfers Treatment Duration: Jan 28, 2022 Frequency: 6 times per week Estimated Hrs Per Day: .25 hour per day Patient and/or Family Agrees t: Yes Time/GCodes Time In: 920 Time Out: 933 Total Billed Treatment Time: 13 Total Billed Treatment 1, FA (13m) KEZIA MARTINEZ GEAR GENERATOR SET UP OPERATOR Jan 24, 2022 09:55
[2022-01-24 12:00] VITALS: BP 154/82
[2022-01-24] MEDS ORDERED: OXYC1TAB12 PO (15:04)
--- NOTE | 2022-01-24 15:07 | Discharge Inst-Simple/Standard ---
Discharge Inst-Standard Discharge Medications New, Converted or Re-Newed RX: Transmitted to Pharmacy Patient Instructions/Follow Up Plan of Care/Instructions/FU: 2 weeks Elvis Activity as Tolerated: No Discharge Diet: Regular Diet Other Inst to Patient Follow up Appt: Make appointment for 2 week. Instructions: No lifting greater than 10 pounds. No strenuous activity. May shower in 24 hours, no tub bath or soaking. Use incentive spirometer at home as directed. No Smoking Skin/Wound Care: Keep area clean and dry. Symptoms to Report: Appetite Changes, Extremity Discoloration, Numbness/Tingling, Swelling Increased, Bleeding Excessive, Eyesight Changes, Pain Increased, Urine Color Change, Constipation(Persistent), Fever over 101 degree F, Pain/Pressure in chest, Urinating Difficulty, Cough Up/Vomit Blood, Heart Beat Irreg/Pounding, Pain/Pressure in jaw, Vaginal Bleeding Increase, Cramps in feet or legs, Lightheadedness, Pain/Pressure in shoulder, Diarrhea(Persistent), Memory Changes Suddenly, Questions/Concerns, Weight gain consecutive days, Dizziness/Fainting, Nausea/Vomiting, Shortness of Breath, Weight gain over 2 pounds If questions or concerns contact your physician Or seek help at emergency department. JB LEUNG DO Jan 24, 2022 15:07
[2022-01-24 15:30] VITALS: BP 154/82
--- NOTE | 2022-01-25 11:44 | Physician Query Clarification ---
PQ-Link Path Diagnosis Admission/Discharge Admission Date: Jan 20, 2022 at 05:55 Discharge Date: Jan 24, 2022 at 15:32 Dr. Leal, The medical record reflects the following: tubular adenoma sigmoid The pathology report findings document: superficially invasive moderately differentiated colonic adenocarcinoma Question: Do you agree with the pathology report findings of sigmoid colon adenocarcinoma? Please document a response in Progress Notes or Discharge Summary. 1. Agree with pathological diagnosis of sigmoid colon adenocarcinoma. 2. No - Do not agree with pathology findings of sigmoid colon adenocarcinoma . 3. Other, with explanation of the clinical findings. 4. Clinically undetermined, no explanation for the clinical findings. Is is appropriate for a provider to add additional documentation (addenda) to the record to explain the evaluation & care up to 30 days post-discharge. See [facility] and Patient Record Guidelines below. The [facility] Chapter Record of Care, Standard; RC.01.03.01EP 1: "The hospital has a written policy that required timely entry of information into the medical record." According to [facility] Patient Record Guidelines, ARTICLE XXI. CORRECTIONS AND ADDENDA, Modifications (addenda amendments, corrections and retractions) should be made timely and no later than regulatory requirements for record completion (i.e. 30 days post discharge). Official coding guidelines require coders to query the physician for agreement w ith pathology findings that occur during the encounter. Coders are not allowed to pull information directly from the path reports. PHYSICIAN RESPONSE Pathology Report Findings: Yes,agree w/path dx as documented Please remember a lack of response to the above will prompt a phone page by CDI/Coding staff. In responding to this query, please exercise your independent professional judgment. The purpose of this communication is to more accurately reflect the complexity of your patients condition. The fact that a question is asked does not imply that any particular answer is desired or expected. Thank you for your timely response to this clarification. Requestors name: Eugenia THIS PHYSICIAN QUERY FORM IS A PERMANENT PART OF THE MEDICAL RECORD EUGENIA GRANT Jan 25, 2022 11:43 JB LEAL DO Feb 02, 2022 20:42
== END 2022-01-24 15:32 | disposition home or self-care (01) | DRG 330 ==
LOC: 4TH 05:55 → SURG 05:56 → 4TH 11:57
PROVIDERS: ADMIT Surgery; ATTEND Surgery
PROC: 0DBN0ZZ Excision of Sigmoid Colon, Open Approach (ICD-10-PCS; principal; 2022-01-20 08:08)
DX: C18.7 Malignant neoplasm of sigmoid colon (principal); E87.1 Hypo-osmolality and hyponatremia; E11.9 Type 2 diabetes mellitus without complications; K20.90 Esophagitis, unspecified without bleeding; F17.210 Nicotine dependence, cigarettes, uncomplicated; I10 Essential (primary) hypertension; E78.00 Pure hypercholesterolemia, unspecified; K57.30 Diverticulosis of large intestine without perforation or abscess without bleeding; Z79.4 Long term (current) use of insulin
CPT/HCPCS: 36415; 80048; 80053; 81210; 81275; 81311; 82947; 83036; 84443; 85025; 85027; 87081; 88309; 88341; 88342; 94640; 94760

== ENCOUNTER 2022-01-30 12:47 | Emergency (ER) | payer OTHER ==
[~2022-01-30] VITALS: Ht 177 cm; Wt 77.0 kg
[~2022-01-30 12:47] MED LIST changes: +OXYC1TAB12 PO
[2022-01-30 13:00] VITALS: BP 128/85
--- NOTE | 2022-01-30 13:34 | ED General ---
General Chief Complaint: Abdominal/GI Problems Stated Complaint: POST OP ABD SURGERY 01/20 - ABD LEAKING Nursing Triage Note: ARRIVED VIA WC TO ROOM 07 WITH COMPLAINTS OF ABD DRAINING STARTING TODAY. RECENT COLON SURGERY WITH LESIA IN PLACE. AREA NOT RED. History of Present Illness Date Seen by Provider: Jan 30, 2022 Time Seen by Provider: 13:00 Initial Comments 61-year-old male presents for drainage from his midline incision distal aspect, its been serosanguineous. He has not been having drainage since discharge from the hospital. He had colon surgery by Dr. Leal approximately a week and a half ago. He has not been keeping a dressing on the wound. He denies any fevers, increased pain, or other complaints. He has been eating and passing stools. No increased abdominal pain. Timing/Duration: 12 Hours Associated Systoms: Denies Symptoms Allergies and Home Medications Allergies Coded Allergies: No Known Drug Allergies (Unverified , 04/01/16) Patient Home Medication List Home Medication List Reviewed: Yes Hydrocodone/Acetaminophen (Hydrocodone-Acetamin 5-325 mg) 1 Each Tablet, 1 TAB PO Q6H PRN for PAIN-MODERATE (5-7) Prescribed by: LENORA SORENSON on 01/30/22 1341 Insulin Determir (Levemir) 1,000 Units/10 Ml Soln, 20 UNITS SQ BID, (Reported) Entered as Reported by: ÁNGEL ARTEAGA on 12/13/21 1456 Oxycodone HCl/Acetaminophen (Percocet 10-325 mg Tablet) 1 Each Tablet, 1 TAB PO Q6H PRN for PAIN-MODERATE (5-7) Prescribed by: JB LEAL on 01/24/22 1505 Review of Systems Review of Systems Constitutional: no symptoms reported, see HPI Gastrointestinal: see HPI; No abdominal pain, No diarrhea, No nausea, No vomiting; other (Serosanguineous drainage from midline abdominal incision.) All Other Systems Reviewed Negative Unless Noted: Yes Past Mbpadxr-Gejpbw-Pyedgb Hx Patient Social History Tobacco Use?: Yes Smoking Status: Current Someday Smoker Substance use?: Yes Substance type: Marijuana Pt feels they are or have been: No Immunizations Up To Date Tetanus Booster (TDap): Less than 5yrs First/Initial COVID19 Vaccinat: 2020 Second COVID19 Vaccination Zach: UNKNOWN DATE Third COVID19 Vaccination Date: 2020 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 Seasonal Allergies Seasonal Allergies: No Past Medical History Surgeries: No (BACK SURGERY) Respiratory: No Currently Using CPAP: No Currently Using BIPAP: No Cardiac: No Neurological: No Reproductive Disorders: No Genitourinary: No Gastrointestinal: Yes (ADENOMA) Musculoskeletal: No Endocrine: Yes Diabetes, Insulin dep HEENT: No Cancer: No Psychosocial: No Integumentary: No Blood Disorders: No Family Medical History Reviewed Nursing Family Hx Physical Exam Vital Signs Vital Signs - First Documented 01/30/22 13:00 Temp 36.7 Pulse 102 Resp 16 B/P (MAP) 128/85 (99) Pulse Ox 94 O2 Delivery Room Air Capillary Refill : Less Than 3 Seconds Height, Weight, BMI Height: 5'10" Weight: 175lbs. oz. 79.466878kk; 24.00 BMI Method:Stated General Appearance: No Apparent Distress, WD/WN Respiratory: Chest Non Tender, Lungs Clear, Normal Breath Sounds Cardiovascular: Irregularly Irregular Gastrointestinal: Normal Bowel Sounds, Soft; No Distended; Other (Incision sites with lesia intact, wound well approximated. No active drainage.) Neurologic/Psychiatric: Alert, Oriented x3, No Motor/Sensory Deficits, Normal Mood/Affect Skin: Normal Color, Warm/Dry Progress/Results/Core Measures Suspected Sepsis SIRS Temperature: Pulse: 102 Respiratory Rate: 16 Blood Pressure 128 /85 Mean: 99 Results/Orders Vital Signs/I&O 01/30/22 13:00 Temp 36.7 Pulse 102 Resp 16 B/P (MAP) 128/85 (99) Pulse Ox 94 O2 Delivery Room Air Capillary Refill : Less Than 3 Seconds Blood Pressure Mean: 99 Progress Note : Time: 13:00 Progress Note Patient seen and evaluated. Nonadhesive dressing applied. Discussed with Dr. Leal, recommended dressing and follow-up with him, if drainage increases. Discharge instructions and return precautions reviewed. Departure Impression Primary Impression: Postoperative complication of skin involving drainage from surgical wound Disposition: HOME, SELF-CARE Condition: Improved Departure-Patient Inst. Decision time for Depature: 13:20 Referrals: JB LEAL DO NO,LOCAL PHYSICIAN (PCP) Primary Care Physician Patient Instructions: Wound Care (DC) Add. Discharge Instructions: Keep wound clean and dry. Apply dressings as needed. Call Dr. Leal's or office if drainage increases, redness at wound site, increased pain, or fever greater than 100 degrees. Return to the emergency department for new, urgent healthcare needs. All discharge instructions reviewed with patient and/or family. Voiced understanding. Scripts Hydrocodone/Acetaminophen (Hydrocodone-Acetamin 5-325 mg) 1 Each Tablet 1 TAB PO Q6H PRN for PAIN-MODERATE (5-7), #12 TAB 0 Refills Prov: LENORA SORENSON 01/30/22 Copy Copies To 1: JB LEAL AMY ARNP Jan 30, 2022 13:34
[2022-01-30] MEDS ORDERED: ACHD5005 PO (13:41)
== END 2022-01-30 13:43 | disposition home or self-care (01) ==
LOC: EDUNIT# 12:47 → ER 12:49
DX: T81.89XA Other complications of procedures, not elsewhere classified, initial encounter (principal); F17.290 Nicotine dependence, other tobacco product, uncomplicated
CPT/HCPCS: 99282

== ENCOUNTER 2022-02-09 13:08 | Outpatient (RCR) | payer OTHER ==
[~2022-02-09 13:08] MED LIST changes: +ACHD5005 PO
[2022-02-09 14:26] LABS: CREATININE SERUM 1.26 MG/DL (0.60-1.30)
== END 2022-03-05 | disposition home or self-care (01) ==
LOC: ONC 13:08
PROVIDERS: ATTEND Internal Medicine Hematology & Oncology
DX: C18.7 Malignant neoplasm of sigmoid colon (principal)
CPT/HCPCS: 82378; 82565; 84520; G0463; 36415; 99214

== ENCOUNTER → 2022-02-14 | Outpatient (CLI) | payer OTHER ==
[~2022-02-14] MED LIST changes: +CATHETER FLUSH 10 ML SYR IV PRN; +IOHEXOL 350 MG/ML 100 ML (OMNIPAQUE 350) VIAL IV ONE; +NS 100 ML (IVPB) BAG IV ONE
--- NOTE | 2022-02-14 13:59 | Diagnostic Imaging Report ---
PROCEDURE: CT chest with contrast only. TECHNIQUE: Multiple contiguous axial images were obtained through the chest after administration of intravenous contrast. Auto Exposure Controls were utilized during the CT exam to meet ALARA standards for radiation dose reduction. DATE: February 14, 2022. COMPARISON: Chest radiographs April 01, 2016. INDICATION: 61-year-old male, shortness of breath. FINDINGS: There is a 10 mm right upper lobe pulmonary nodule on axial image 84. There is a 3 mm right middle lobe pulmonary nodule on the same image. There is a 4 mm right lower lobe pulmonary nodule on axial image 118. There are predominantly linear opacities in the right lower lobe, compatible with atelectasis and/or scarring. There is a 3 mm right upper lobe pulmonary nodule on axial image 45. There is a 5 mm left lower lobe pulmonary nodule on axial image 105. There is a 3 mm left lower lobe pulmonary nodule on axial image 83. There are upper lobe predominant findings of predominantly paraseptal emphysema. There are linear opacities in the left lower lobe, consistent with atelectasis and/or scarring. There is no pneumothorax. There is no pleural effusion. The heart is not enlarged. There is no pericardial effusion. There is no identified abnormally enlarged mediastinal, hilar, or axillary lymph node meeting CT size criteria for adenopathy. There is an exophytic low-attenuation right renal lesion incompletely imaged on axial image 179 measuring 1.6 cm in size. Internal attenuation is compatible with a benign cyst. There does appear to be incompletely imaged small bowel wall thickening in the left side of the abdomen on axial image 179 with adjacent inflammatory stranding. This is at the inferior margin of the included [id number]. There are degenerative changes of the spine. There is no acute bony abnormality. IMPRESSION: 1. Multiple bilateral pulmonary nodules with the largest measuring 10 mm in the right upper lobe. If comparison CT chest imaging is not available to assess for stability, a short-term followup CT chest in 3 months is recommended to evaluate for stability. 2. Upper lobe predominant findings of emphysema. 3. Incompletely imaged probable abnormal small bowel wall thickening with adjacent inflammatory stranding. This may potentially relate to a nonspecific enteritis although is incompletely imaged and difficult to definitively evaluate. Further evaluation with CT abdomen/pelvis with intravenous contrast is recommended. Dictated by: Dictated on workstation # [id number]
== END ==
LOC: RAD 11:45
PROVIDERS: ATTEND Internal Medicine Hematology & Oncology
DX: C18.7 Malignant neoplasm of sigmoid colon (principal); R91.8 Other nonspecific abnormal finding of lung field; J43.9 Emphysema, unspecified
CPT/HCPCS: 71260

== ENCOUNTER 2022-03-17 13:55 | Inpatient (IN) | payer OTHER ==
[~2022-03-17] VITALS: Ht 178 cm; Wt 75.6 kg
[~2022-03-17 13:55] MED LIST changes: -CATHETER FLUSH 10 ML SYR IV PRN; -IOHEXOL 350 MG/ML 100 ML (OMNIPAQUE 350) VIAL IV ONE; -NS 100 ML (IVPB) BAG IV ONE
--- NOTE | 2022-03-17 14:26 | ED General ---
General Chief Complaint: Dizziness/Syncope Stated Complaint: DIZZY Nursing Triage Note: PT AMBULATE TO ROOM 07 WITH C/O DIZZYNESS X "A FEW YEARS". PT REPORTS BEING SEEN AT [facility] IN [place] FOR SAME C/O AND WAS TOLD TO COME TO AN ED BECAUSE IT WOULD BE FASTER TO GET LAB WORK DONE. PT STATES HIS C/O IS NOT AN EMERGENCY AND THAT HE ONLY CAME TO ED BECAUSE HE WAS TOLD TO FOR LAB WORK. Source of Information: Patient Exam Limitations: No Limitations History of Present Illness Date Seen by Provider: March 17, 2022 Time Seen by Provider: 13:59 Initial Comments 61-year-old male with no pertinent past medical history, but he is a smoker coming in due to dizziness. Says it happens once every couple months for seconds to several minutes. Last occurred yesterday where he felt really weak and generally, lightheaded, and broke out into a sweat. This lasted roughly 15 minutes. He said he felt fatigued the rest of the day like he just had no energy. Denies any ringing in his ears. Was seen in his primary care clinic and they wanted him to get some lab work, but he has not had that done yet. This has been happening intermittently for quite some time. Denies any chest pain, shortness of breath, abdominal pain, nausea, vomiting, diarrhea, current vision changes, headache, weakness, numbness, rash, dysuria, or any other concerns. Denies any prior cardiac history or stroke history. Allergies and Home Medications Allergies Coded Allergies: No Known Drug Allergies (Unverified , 04/01/16) Patient Home Medication List Home Medication List Reviewed: Yes Hydrocodone/Acetaminophen (Hydrocodone-Acetamin 5-325 mg) 1 Each Tablet, 1 TAB PO Q6H PRN for PAIN-MODERATE (5-7) Prescribed by: LENORA SORENSON on 01/30/22 1341 Insulin Determir (Levemir) 1,000 Units/10 Ml Soln, 20 UNITS SQ BID, (Reported) Entered as Reported by: ÁNGEL ARTEAGA on 12/13/21 1456 Oxycodone HCl/Acetaminophen (Percocet 10-325 mg Tablet) 1 Each Tablet, 1 TAB PO Q6H PRN for PAIN-MODERATE (5-7) Prescribed by: JB LEUNG on 01/24/22 1505 Review of Systems Review of Systems Constitutional: No chills, No fever EENTM: other (Vertigo) Respiratory: no symptoms reported Cardiovascular: no symptoms reported Gastrointestinal: no symptoms reported Genitourinary: no symptoms reported Musculoskeletal: no symptoms reported Skin: no symptoms reported Psychiatric/Neurological: Denies Headache, Denies Numbness, Denies Seizure, Denies Weakness Hematologic/Lymphatic: No Symptoms Reported Immunological/Allergic: no symptoms reported All Other Systems Reviewed Negative Unless Noted: Yes Past Cylcwyw-Qqvuzz-Eqbpla Hx Patient Social History Tobacco Use?: Yes Smoking Status: Never a Smoker Smokeless Tobacco Frequency: Never a User Use of E-Cig and/or Vaping dev: No Use of E-Cig and/or Vaping Ian: Never a User Substance use?: No Alcohol Use?: No Pt feels they are or have been: No Immunizations Up To Date Tetanus Booster (TDap): Less than 5yrs First/Initial COVID19 Vaccinat: 2020 Second COVID19 Vaccination Zach: UNKNOWN DATE Third COVID19 Vaccination Date: 2020 Seasonal Allergies Seasonal Allergies: No Past Medical History Surgeries: Yes (Colon cancer with partial colectomy) Respiratory: No Currently Using CPAP: No Currently Using BIPAP: No Cardiac: No Neurological: No Reproductive Disorders: No Genitourinary: No Gastrointestinal: Yes (ADENOMA) Musculoskeletal: No Endocrine: Yes Diabetes, Insulin dep HEENT: No Cancer: No Psychosocial: No Integumentary: No Blood Disorders: No Physical Exam Vital Signs Vital Signs - First Documented 03/17/22 14:01 Temp 36.0 Pulse 103 Resp 17 B/P (MAP) 153/95 (114) O2 Delivery Room Air Capillary Refill : Less Than 3 Seconds Height, Weight, BMI Height: 5'10" Weight: 175lbs. oz. 79.099384tq; 25.00 BMI Method:Stated General Appearance: No Apparent Distress, WD/WN Eyes: Bilateral Eye Normal Inspection, Bilateral Eye PERRL, Bilateral Eye EOMI, Bilateral Eye Other (No nystagmus, 20/20 vision with normal visual alexander as well) HEENT: PERRL/EOMI, TMs Normal, Normal ENT Inspection, Pharynx Normal Neck: Full Range of Motion, Normal Inspection, Non Tender, Supple Respiratory: Chest Non Tender, Lungs Clear, Normal Breath Sounds, No Accessory Muscle Use Cardiovascular: Regular Rate, Rhythm, No Edema, Normal Peripheral Pulses Gastrointestinal: Normal Bowel Sounds, Non Tender, Soft; No Distended, No Guarding Back: Normal Inspection, No CVA Tenderness Extremity: Normal Capillary Refill, Normal Inspection, Normal Range of Motion, Non Tender, No Calf Tenderness, No Pedal Edema Neurologic/Psychiatric: Alert, Oriented x3, No Motor/Sensory Deficits, Normal Mood/Affect, soa engineer II-XII Norm as Tested, Other (Normal geihsu-te-bivd, normal wxgw-tz-cykd, normal gait, normal tandem gait) Skin: Normal Color, Warm/Dry Lymphatic: No Adenopathy Progress/Results/Core Measures Suspected Sepsis SIRS Temperature: Pulse: 103 Respiratory Rate: 17 Laboratory Tests 03/17/22 14:26: White Blood Count 6.8 Blood Pressure 153 /95 Mean: 114 Laboratory Tests 03/17/22 14:26: Creatinine 1.05, Platelet Count 362, Total Bilirubin 0.5 Results/Orders Lab Results Laboratory Tests Test 03/17/22 14:26 Range/Units White Blood Count 6.8 4.3-11.0 10^3/uL Red Blood Count 4.85 4.30-5.52 10^6/uL Hemoglobin 14.5 13.3-17.7 g/dL Hematocrit 42 40-54 % Mean Corpuscular Volume 86 80-99 fL Mean Corpuscular Hemoglobin 30 25-34 pg Mean Corpuscular Hemoglobin Concent 35 32-36 g/dL Red Cell Distribution Width 13.8 10.0-14.5 % Platelet Count 362 130-400 10^3/uL Mean Platelet Volume 9.1 9.0-12.2 fL Immature Granulocyte % (Auto) 0 % Neutrophils (%) (Auto) 47 42-75 % Lymphocytes (%) (Auto) 40 12-44 % Monocytes (%) (Auto) 8 0-12 % Eosinophils (%) (Auto) 3 0-10 % Basophils (%) (Auto) 1 0-10 % Neutrophils # (Auto) 3.2 1.8-7.8 10^3/uL Lymphocytes # (Auto) 2.8 1.0-4.0 10^3/uL Monocytes # (Auto) 0.6 0.0-1.0 10^3/uL Eosinophils # (Auto) 0.2 0.0-0.3 10^3/uL Basophils # (Auto) 0.1 0.0-0.1 10^3/uL Immature Granulocyte # (Auto) 0.0 0.0-0.1 10^3/uL Sodium Level 137 135-145 MMOL/L Potassium Level 3.9 3.6-5.0 MMOL/L Chloride Level 105 98-107 MMOL/L Carbon Dioxide Level 21 21-32 MMOL/L Anion Gap 11 5-14 MMOL/L Blood Urea Nitrogen 18 7-18 MG/DL Creatinine 1.05 0.60-1.30 MG/DL Estimat Glomerular Filtration Rate 80 BUN/Creatinine Ratio 17 Glucose Level 135 H 70-105 MG/DL Calcium Level 9.2 8.5-10.1 MG/DL Corrected Calcium 9.1 8.5-10.1 MG/DL Magnesium Level 2.2 1.6-2.4 MG/DL Total Bilirubin 0.5 0.1-1.0 MG/DL Aspartate Amino Transf (AST/SGOT) 17 5-34 U/L Alanine Aminotransferase (ALT/SGPT) 16 0-55 U/L Alkaline Phosphatase 102 40-136 U/L Troponin I 0.101 H <0.028 NG/ML Total Protein 7.1 6.4-8.2 GM/DL Albumin 4.1 3.2-4.5 GM/DL My Orders Orders - MIGUEL DIEGO MD Cbc With Automated Diff (03/17/22 14:20) Comprehensive Metabolic Panel (03/17/22 14:20) Magnesium (03/17/22 14:20) Troponin I Kel (03/17/22 14:20) Ekg Tracing (03/17/22 14:20) Aspirin Chewable Tablet (Baby Aspirin Ch (03/17/22 14:30) Ct Head Wo (03/17/22 14:26) Metoprolol Succinate (Xl) Tab (Toprol Xl (03/17/22 15:15) Clopidogrel Tablet (Plavix Tablet) (03/17/22 15:15) Enoxaparin Injection (Lovenox Injection) (03/17/22 15:15) Ed Admission (Communication) (03/17/22 15:16) Medications Given in ED Current Medications Medications Dose Ordered Sig/Claudia Route Start Time Stop Time Status Last Admin Dose Admin Aspirin 324 mg ONCE ONCE PO 03/17/22 14:30 03/17/22 14:31 DC 03/17/22 14:32 324 MG Vital Signs/I&O 03/17/22 14:01 Temp 36.0 Pulse 103 Resp 17 B/P (MAP) 153/95 (114) O2 Delivery Room Air Capillary Refill : Less Than 3 Seconds Blood Pressure Mean: 114 Progress Note : Progress Note 61-year-old male with above history coming in due to intermittent dizziness with the last episode occurring yesterday lasting several minutes. ABCs were intact and vitals were stable on presentation. Focused neurologic exam completely normal with no signs of stroke or cerebellar findings at all. Differential includes peripheral vertigo versus less likely central vertigo. Also concerned this could have been a cardiac event given the general weakness and diaphoresis he is describing with it. He was given full dose aspirin. Initial EKG without acute ischemic changes, however he does have a right bundle branch block and Q waves in the inferior leads. Troponin is positive at 0.1. I then contacted the weigher alloy and the [facility] hospitalist for the patient to be admitted. The patient will go to the cardiac stepdown as an inpatient. ECG Initial ECG Impression Date: March 17, 2022 Initial ECG Impression Time: 15:00 Initial ECG Rate: 83 Initial ECG Rhythm: Normal Sinus Comment Wide QRS with a right bundle branch block, no significant ST changes or T wave abnormalities, Q waves in the inferior leads, no prior EKG to compare to Departure Impression Primary Impression: NSTEMI (non-ST elevated myocardial infarction) Disposition: ADMITTED INPATIENT Condition: Stable Admissions Decision to Admit Reason: Admit from ER (General) Decision to Admit/Date: March 17, 2022 Time/Decision to Admit Time: 15:00 Departure-Patient Inst. Referrals: NO,LOCAL PHYSICIAN (PCP) Primary Care Physician CAM PAZ APRN (Family) Primary Care Physician MIGUEL DIEGO MD March 17, 2022 14:26
[2022-03-17] MEDS ORDERED: ASPIRIN 81 MG CHEW (CHILDREN'S ASA) PO ONE (14:30)
[2022-03-17 14:33] LABS: BASOPHILS # (AUTO) 0.1 10^3/uL (0.0-0.1); BASOPHILS % (AUTO) 1 % (0-10); EOSINOPHILS # (AUTO) 0.2 10^3/uL (0.0-0.3); EOSINOPHILS % (AUTO) 3 % (0-10); HEMATOCRIT 42 % (40-54); HEMOGLOBIN 14.5 g/dL (13.3-17.7); LYMPHOCYTES # (AUTO) 2.8 10^3/uL (1.0-4.0); LYMPHOCYTES % (AUTO) 40 % (12-44); MEAN CORPUSCULAR HEMOGLOBIN 30 pg (25-34); MEAN CORPUSCULAR HGB CONC 35 g/dL (32-36); MEAN CORPUSCULAR VOLUME 86 fL (80-99); MEAN PLATELET VOLUME 9.1 fL (9.0-12.2); MONOCYTES # (AUTO) 0.6 10^3/uL (0.0-1.0); MONOCYTES % (AUTO) 8 % (0-12); NEUTROPHILS # (AUTO) 3.2 10^3/uL (1.8-7.8); NEUTROPHILS % (AUTO) 47 % (42-75); PLATELET COUNT 362 10^3/uL (130-400); WHITE BLOOD COUNT 6.8 10^3/uL (4.3-11.0)
[2022-03-17 14:42] LABS: ALBUMIN 4.1 GM/DL (3.2-4.5); POTASSIUM 3.9 MMOL/L (3.6-5.0)
[2022-03-17 14:43] LABS: CALCIUM 9.2 MG/DL (8.5-10.1)
[2022-03-17 14:45] LABS: TOTAL PROTEIN 7.1 GM/DL (6.4-8.2)
[2022-03-17 14:46] LABS: BILIRUBIN,TOTAL 0.5 MG/DL (0.1-1.0)
[2022-03-17 14:48] LABS: CREATININE SERUM 1.05 MG/DL (0.60-1.30)
[2022-03-17 14:51] LABS: MAGNESIUM 2.2 MG/DL (1.6-2.4)
--- NOTE | 2022-03-17 14:58 | Diagnostic Imaging Report ---
PROCEDURE: CT head without contrast. TECHNIQUE: Multiple contiguous axial images were obtained through the brain without the use of intravenous contrast. Auto Exposure Controls were utilized during the CT exam to meet ALARA standards for radiation dose reduction. INDICATION: Vertigo, history of colon cancer. COMPARISON: I have no priors. FINDINGS: There was no evidence for mass or mass effect. No focal or generalized cerebral edema is found. There is no elevation of the intracerebral pressures and there is no hydrocephalus. This patient has some periventricular white matter hypodensities, likely small vessel sequelae. No sulcal effacement. No findings of cortical edema. The basilar cisterns are patent. There is no mass or mass effect. No appreciable cerebellopontine angle mass or mass effect. Mastoid air cells and middle ear cavities are clear. The paranasal sinuses, orbits, and calvarium are nonacute. There is no hemorrhage. IMPRESSION: No findings of hemorrhage, edema, or evidence for metastatic disease. No acute-appearing abnormality. Dictated by: Dictated on workstation # [id number]
[2022-03-17] MEDS ORDERED: CLOPIDOGREL 300 MG (PLAVIX) TABLET PO ONE (15:15)
[2022-03-17] MEDS ORDERED: ENOXAPARIN 80 MG/0.8 ML (LOVENOX) SYR SC ONE (15:15)
--- NOTE | 2022-03-17 15:39 | Consultation-Cardiology ---
HPI-Cardiology Cardiology Consultation: Date of Consultation 03/17/22 Time Seen by a Provider: 15:45 Date of Admission 03-17-22 Attending Physician Casie Veronica MD Admitting Physician Betzy,Local Physician Consulting Physician FATIMAH LEYVA HPI: Chief Complaint: NSTEMI Mr. Guillen is a 61 yr old male admitted to 512 from the ED with c/o dizziness which has become increasing worse over the last few days. He reports the dizziness has been present for approx 5 yrs. He denies any c/o CP, SOB, palpitations, syncope or near syncope. He denies any LE swelling. He reports he takes no medications at home. He reports he smoke approx 1/2 PPD of cigs since age 18. He is currently reporting no symptoms at this time. He denies any n/v/d. He reports recent colon surgery by Dr. Leung d/t colon cancer which did not require any chemo or radiation tx. Review of Systems-Cardiology Review of Systems Constitutional: No chills, No fever; other (dizziness) Eyes: No vision change Ears/Nose/Throat: No epistaxis, No recent hearing loss Respiratory: As described under HPI Cardiovascular: As described under HPI Gastrointestinal: As described under HPI Genitourinary: No dysuria, No hematuria Musculoskeletal: other (chronic back pain) Skin: No rash on exposed areas, No ulcerations on exposed areas Psychiatric/Neurological: No anxiety, No depression, No seizure, No focal weakness, No syncope Hematologic: No bleeding abnormalities All Other Systems Reviewed Negative Unless Noted: Yes BYX-Dmvbjq-Lfyqra Hx Patient Social History Smoking Status: Never a Smoker Have you traveled recently?: No Alcohol Use?: No Pt feels they are or have been: No Immunizations Up To Date Tetanus Booster (TDap): Less than 5yrs Past Medical History PMH As described under Assessment. Family Medical History Family Medical History: He denies any family h/o CAD or CVA. Allergies and Home Medications Allergies Coded Allergies: No Known Drug Allergies (Unverified , 04/01/16) Patient Home Medication List Hydrocodone/Acetaminophen (Hydrocodone-Acetamin 5-325 mg) 1 Each Tablet, 1 TAB PO Q6H PRN for PAIN-MODERATE (5-7) Prescribed by: LENORA SORENSON on 01/30/22 1341 Insulin Determir (Levemir) 1,000 Units/10 Ml Soln, 20 UNITS SQ BID, (Reported) Entered as Reported by: ÁNGEL ARTEAGA on 12/13/21 1456 Oxycodone HCl/Acetaminophen (Percocet 10-325 mg Tablet) 1 Each Tablet, 1 TAB PO Q6H PRN for PAIN-MODERATE (5-7) Prescribed by: JB LEUNG on 01/24/22 1505 Physical Exam-Cardiology Physical Exam Vital Signs/I&O 03/17/22 14:01 Temp 36.0 Pulse 103 Resp 17 B/P (MAP) 153/95 (114) O2 Delivery Room Air Capillary Refill : Less Than 3 Seconds Constitutional: AAO x 3, well-developed, well-nourished HEENT: PERRL, hearing is well preserved, oral hygience is good Neck: No carotid bruit; carotid pulses are 2 + bilaterally Respiratory: No accessory muscle use, No respiratory distress; chest expansion is symmetric, chest is bilaterally symmetric, rhonchi (scattered with prolonged exp phase) Cardiovascular: regular rate-rhythm; No JVD; S1 and S2 Gastrointestinal: No tender; soft, round, audible bowel sounds Extremities: no lower extremity edema bilateral Neurologic/Psychiatric: grossly intact (moves all extremities) Skin: No rash on exposed areas, No ulcerations on exposed areas Data Review Labs Laboratory Tests 03/17/22 14:26: White Blood Count 6.8, Red Blood Count 4.85, Hemoglobin 14.5, Hematocrit 42, Mean Corpuscular Volume 86, Mean Corpuscular Hemoglobin 30, Mean Corpuscular Hemoglobin Concent 35, Red Cell Distribution Width 13.8, Platelet Count 362, Mean Platelet Volume 9.1, Immature Granulocyte % (Auto) 0, Neutrophils (%) (Auto) 47, Lymphocytes (%) (Auto) 40, Monocytes (%) (Auto) 8, Eosinophils (%) (Auto) 3, Basophils (%) (Auto) 1, Neutrophils # (Auto) 3.2, Lymphocytes # (Auto) 2.8, Monocytes # (Auto) 0.6, Eosinophils # (Auto) 0.2, Basophils # (Auto) 0.1, Immature Granulocyte # (Auto) 0.0, Sodium Level 137, Potassium Level 3.9, Chloride Level 105, Carbon Dioxide Level 21, Anion Gap 11, Blood Urea Nitrogen 18, Creatinine 1.05, Estimat Glomerular Filtration Rate 80, BUN/Creatinine Ratio 17, Glucose Level 135H, Calcium Level 9.2, Corrected Calcium 9.1, Magnesium Level 2.2, Total Bilirubin 0.5, Aspartate Amino Transf (AST/SGOT) 17, Alanine Aminotransferase (ALT/SGPT) 16, Alkaline Phosphatase 102, Troponin I 0.101H, Total Protein 7.1, Albumin 4.1 Laboratory Tests 03/17/22 14:26 Radiology NAME: SELVIN GUILLEN [facility] REC#: [id number] PT STATUS: REG ER : 1960 PHYSICIAN: MIGUEL DIEGO MD ADMIT DATE: 03/17/22/ER Draft Date of Exam:03/17/22 CT HEAD WO PROCEDURE: CT head without contrast. TECHNIQUE: Multiple contiguous axial images were obtained through the brain without the use of intravenous contrast. Auto Exposure Controls were utilized during the CT exam to meet ALARA standards for radiation dose reduction. INDICATION: Vertigo, history of colon cancer. COMPARISON: I have no priors. FINDINGS: There was no evidence for mass or mass effect. No focal or generalized cerebral edema is found. There is no elevation of the intracerebral pressures and there is no hydrocephalus. This patient has some periventricular white matter hypodensities, likely small vessel sequelae. No sulcal effacement. No findings of cortical edema. The basilar cisterns are patent. There is no mass or mass effect. No appreciable cerebellopontine angle mass or mass effect. Mastoid air cells and middle ear cavities are clear. The paranasal sinuses, orbits, and calvarium are nonacute. There is no hemorrhage. IMPRESSION: No findings of hemorrhage, edema, or evidence for metastatic disease. No acute-appearing abnormality. Dictated on workstation # [id number] Dict: 03/17/22 1445 Trans: 03/17/22 1458 [id number] Interpreted by: CORI CARROLL Electronically signed by: ECG Impression ECG Comment SR with RBBB A/P-Cardiology Assessment/Admission Diagnosis NSTEMI Dizziness of undetermined etiology HTN - not on any medications HLD - not on any medications H/O DM 2 H/O colon cancer - recent colon resection by Dr. Leung Tobaccoism - cessation advised Probable COPD Discussion and Recomendations NSTEMI - advise cardiac cath - discussed the procedure, risks, benefits, and potential complications of cardiac cath with possible ad hoc coronary intervention - he is agreeable - start DAPT, BB and statin Echocardiogram to eval structure and function Monitor lab - replace electrolytes as indicated Further recs will be based on his hospital course We would like to thank medical services for this consult FATIMAH NICHOLAS March 17, 2022 15:39
[2022-03-17] MEDS ORDERED: PHARMACY TO DOSE SQ SCH (16:00)
[2022-03-17] MEDS ORDERED: NITROGLYCERIN 0.4 MG SL TABS BTL 25'S SL PRN (16:00)
[2022-03-17] MEDS ORDERED: morphine INJ 4 MG/ML 1 ML (VIAL/SYRINGE) IV PRN (16:00)
[2022-03-17 16:05] VITALS: BP 163/91
[2022-03-17] MEDS ORDERED: ENOXAPARIN 100 MG/1 ML (LOVENOX) SYR SC SCH (16:15)
[2022-03-17 16:30] VITALS: BP 153/95
--- NOTE | 2022-03-17 17:49 | Consultation-Cardiology ---
HPI-Cardiology Cardiology Consultation: Date of Consultation 03/17/22 Time Seen by a Provider: 17:30 Date of Admission Attending Physician Casie Veronica MD Admitting Physician No,Local Physician Consulting Physician MARIZA LEON MD, MA, FACP, FACC, FSCAI, CCDS HPI: Chief Complaint: Reason for card consult: Elevated troponin Mr. Bolton is a 61 yr old male admitted to 512 from the ED with c/o dizziness which has become increasing worse over the last few days. He reports the dizziness has been present for approx 5 yrs. He denies any c/o CP, SOB, palpitations, syncope or near syncope. He denies any LE swelling. He reports he takes no medications at home. He reports he smoke approx 1/2 PPD of cigs since age 18. He is currently reporting no symptoms at this time. He denies any n/v/d. He reports recent colon surgery by Dr. Leung d/t colon cancer which did not require any chemo or radiation tx. Review of Systems-Cardiology Review of Systems Constitutional: No chills, No fever; other (dizziness) Eyes: No vision change Ears/Nose/Throat: No epistaxis, No recent hearing loss Respiratory: As described under HPI Cardiovascular: As described under HPI Gastrointestinal: As described under HPI Genitourinary: No dysuria, No hematuria Musculoskeletal: other (chronic back pain) Skin: No rash on exposed areas, No ulcerations on exposed areas Psychiatric/Neurological: No anxiety, No depression, No seizure, No focal weakness, No syncope Hematologic: No bleeding abnormalities All Other Systems Reviewed Negative Unless Noted: Yes TNE-Yyhokd-Ghtsiq Hx Patient Social History Smoking Status: Heavy Tobacco Smoker Have you traveled recently?: No Alcohol Use?: No Substance type: Marijuana Pt feels they are or have been: No Tobacco type used: Cigarettes Immunizations Up To Date Tetanus Booster (TDap): Less than 5yrs Past Medical History PMH As described under Assessment. Family Medical History Family Medical History: He denies any family h/o CAD or CVA. Allergies and Home Medications Allergies Coded Allergies: No Known Drug Allergies (Unverified , 04/01/16) Patient Home Medication List Home Medication List Reviewed: Yes Hydrocodone/Acetaminophen (Hydrocodone-Acetamin 5-325 mg) 1 Each Tablet, 1 TAB PO Q6H PRN for PAIN-MODERATE (5-7) Prescribed by: LENORA SORENSON on 01/30/22 1341 Insulin Determir (Levemir) 1,000 Units/10 Ml Soln, 20 UNITS SQ BID, (Reported) Entered as Reported by: ÁNGEL ARTEAGA on 12/13/21 1456 Oxycodone HCl/Acetaminophen (Percocet 10-325 mg Tablet) 1 Each Tablet, 1 TAB PO Q6H PRN for PAIN-MODERATE (5-7) Prescribed by: JB LEUNG on 01/24/22 1505 Physical Exam-Cardiology Physical Exam Vital Signs/I&O 03/17/22 03/17/22 03/17/22 03/17/22 14:01 15:46 16:05 16:05 Temp 36.0 Pulse 103 68 80 Resp 17 15 B/P (MAP) 153/95 (114) 146/84 163/91 (115) Pulse Ox 97 O2 Delivery Room Air Room Air 03/17/22 03/17/22 03/17/22 16:11 16:30 16:39 Temp 36.0 Pulse 103 Pulse Ox 99 97 97 O2 Delivery Room Air Room Air O2 Flow Rate 0.00 FiO2 21 Capillary Refill : Less Than 3 Seconds Constitutional: AAO x 3, well-developed, well-nourished HEENT: PERRL, hearing is well preserved, oral hygience is good Neck: No carotid bruit; carotid pulses are 2 + bilaterally Respiratory: No accessory muscle use, No respiratory distress; chest expansion is symmetric, chest is bilaterally symmetric, rhonchi (scattered with prolonged exp phase) Cardiovascular: regular rate-rhythm; No JVD; S1 and S2 Gastrointestinal: No tender; soft, round, audible bowel sounds Extremities: no lower extremity edema bilateral Neurologic/Psychiatric: grossly intact (moves all extremities) Skin: No rash on exposed areas, No ulcerations on exposed areas Data Review Labs Laboratory Tests 03/17/22 14:26: White Blood Count 6.8, Red Blood Count 4.85, Hemoglobin 14.5, Hematocrit 42, Mean Corpuscular Volume 86, Mean Corpuscular Hemoglobin 30, Mean Corpuscular Hemoglobin Concent 35, Red Cell Distribution Width 13.8, Platelet Count 362, Mean Platelet Volume 9.1, Immature Granulocyte % (Auto) 0, Neutrophils (%) (Auto) 47, Lymphocytes (%) (Auto) 40, Monocytes (%) (Auto) 8, Eosinophils (%) (Auto) 3, Basophils (%) (Auto) 1, Neutrophils # (Auto) 3.2, Lymphocytes # (Auto) 2.8, Monocytes # (Auto) 0.6, Eosinophils # (Auto) 0.2, Basophils # (Auto) 0.1, Immature Granulocyte # (Auto) 0.0, Sodium Level 137, Potassium Level 3.9, Chloride Level 105, Carbon Dioxide Level 21, Anion Gap 11, Blood Urea Nitrogen 18, Creatinine 1.05, Estimat Glomerular Filtration Rate 80, BUN/Creatinine Ratio 17, Glucose Level 135H, Calcium Level 9.2, Corrected Calcium 9.1, Magnesium Level 2.2, Total Bilirubin 0.5, Aspartate Amino Transf (AST/SGOT) 17, Alanine Aminotransferase (ALT/SGPT) 16, Alkaline Phosphatase 102, Troponin I 0.101H, Total Protein 7.1, Albumin 4.1 A/P-Cardiology Assessment/Admission Diagnosis NSTEMI Dizziness of undetermined etiology HTN - not on any medications HLD - not on any medications H/O DM 2 H/O colon cancer - recent colon resection by Dr. Leung Tobaccoism - cessation advised Probable COPD Discussion and Recomendations NSTEMI - advise cardiac cath - discussed the procedure, risks, benefits, and potential complications of cardiac cath with possible ad hoc coronary intervention - he is agreeable - start DAPT, BB and statin Echocardiogram to eval structure and function Monitor lab - replace electrolytes as indicated Further recs will be based on his hospital course We would like to thank medical services for this consult MARIZA LEON MD FACP FAC CCDS March 17, 2022 17:49
[2022-03-17] MEDS ORDERED: RT-ALBUTEROL SULF 2.5 MG/3 ML PRE-MIX VIAL INH PRN (18:00)
[2022-03-17] MEDS: NS IV 1000 ML 1,000 ML IV SCH (18:36)
[2022-03-17 20:00] VITALS: BP 142/80
[2022-03-18] VITALS: BP 148/88
[2022-03-18 04:00] VITALS: BP 156/87
[2022-03-18] MEDS ORDERED: ENOXAPARIN 80 MG/0.8 ML (LOVENOX) SYR SC SCH (04:00)
[2022-03-18 05:27] LABS: BASOPHILS # (AUTO) 0.1 10^3/uL (0.0-0.1); BASOPHILS % (AUTO) 1 % (0-10); EOSINOPHILS # (AUTO) 0.2 10^3/uL (0.0-0.3); EOSINOPHILS % (AUTO) 3 % (0-10); HEMATOCRIT 44 % (40-54); HEMOGLOBIN 15.1 g/dL (13.3-17.7); LYMPHOCYTES # (AUTO) 2.6 10^3/uL (1.0-4.0); LYMPHOCYTES % (AUTO) 35 % (12-44); MEAN CORPUSCULAR HEMOGLOBIN 30 pg (25-34); MEAN CORPUSCULAR HGB CONC 34 g/dL (32-36); MEAN CORPUSCULAR VOLUME 86 fL (80-99); MEAN PLATELET VOLUME 9.7 fL (9.0-12.2); MONOCYTES # (AUTO) 0.5 10^3/uL (0.0-1.0); MONOCYTES % (AUTO) 7 % (0-12); NEUTROPHILS # (AUTO) 3.9 10^3/uL (1.8-7.8); NEUTROPHILS % (AUTO) 53 % (42-75); PLATELET COUNT 386 10^3/uL (130-400); WHITE BLOOD COUNT 7.3 10^3/uL (4.3-11.0)
[2022-03-18 05:45] LABS: ALBUMIN 4.1 GM/DL (3.2-4.5)
[2022-03-18 05:46] LABS: INR 0.9 (0.8-1.4)
[2022-03-18 05:47] LABS: CALCIUM 9.5 MG/DL (8.5-10.1)
--- NOTE | 2022-03-18 05:47 | Short Stay Summary-Hospitalist ---
History of Present Illness HPI/Chief Complaint CC: Chest pain HPI: This is a 61 yr old male [facility] pt who presented to the ER with chest pain and found to have elevated troponin. Pt will have an echocardiogram and cardiac catheterization today by cardiology. Source: patient Exam Limitations: no limitations Date Seen 03/18/22 Time Seen by a Provider: 08:00 Attending Physician Casie Veronica MD PCP No,Local Physician Referring Physician Date of Admission March 17, 2022 at 15:17 Home Medications & Allergies Home Medications Reviewed patient Home Medication Reconciliation performed by pharmacy medication reconciliations global position system technician and/or nursing. Patients Allergies have been reviewed. Allergies Allergies Coded Allergies No Known Drug Allergies (Unverified04/01/16) Past Iddtwyd-Oqsvux-Hgwdjl Hx Patient Social History Marrital Status: single Employed/Student: unemployed Tobacco Use?: Yes Tobacco type used: Cigarettes Smoking Status: Heavy Tobacco Smoker Smokeless Tobacco Frequency: Never a User Use of E-Cig and/or Vaping dev: No Use of E-Cig and/or Vaping Ian: Never a User Substance use?: Yes Substance type: Marijuana Substance frequency: Once in a while Alcohol Use?: No Pt feels they are or have been: No Immunizations Up To Date First/Initial COVID19 Vaccinat: 2020 Second COVID19 Vaccination Zach: UNKNOWN DATE Seasonal Allergies Seasonal Allergies: No Current Status Advance Directives: No Communicates: Verbally Primary Language: Colombian Preferred Spoken Language: Colombian Is interpretation needed?: No Sensory deficits: Vision impairment Implanted or Applied Medical D: None Past Medical History Currently Using CPAP: No Currently Using BIPAP: No Diabetes, Insulin dep Blood Disorders: No Review of Systems Constitutional: see HPI EENTM: no symptoms reported Respiratory: no symptoms reported Cardiovascular: chest pain Physical Exam Physical Exam Vital Signs Vital Signs - First Documented 03/17/22 03/17/22 03/17/22 03/17/22 14:01 15:46 16:30 16:39 Temp 36.0 Pulse 103 Resp 17 B/P (MAP) 153/95 (114) Pulse Ox 97 O2 Delivery Room Air O2 Flow Rate 0.00 FiO2 21 Capillary Refill : Less Than 3 Seconds Height, Weight, BMI Height: 5'10" Weight: 175lbs. oz. 79.274401ie; 24.33 BMI Method:Stated General Appearance: No Apparent Distress, WD/WN Eyes: Bilateral Eye Normal Inspection, Bilateral Eye PERRL, Bilateral Eye EOMI, Bilateral Eye Other (No nystagmus, 20/20 vision with normal visual alexander as well) HEENT: PERRL/EOMI, TMs Normal, Normal ENT Inspection, Pharynx Normal Neck: Full Range of Motion, Normal Inspection, Non Tender, Supple Respiratory: Chest Non Tender, Lungs Clear, Normal Breath Sounds, No Accessory Muscle Use Cardiovascular: Regular Rate, Rhythm, No Edema, Normal Peripheral Pulses Gastrointestinal: Normal Bowel Sounds, Non Tender, Soft; No Distended, No Guarding Back: Normal Inspection, No CVA Tenderness Extremity: Normal Capillary Refill, Normal Inspection, Normal Range of Motion, Non Tender, No Calf Tenderness, No Pedal Edema Neurologic/Psychiatric: Alert, Oriented x3, No Motor/Sensory Deficits, Normal Mood/Affect, pipe fitter marine II-XII Norm as Tested, Other (Normal ufmnsk-rj-tryv, normal qwpe-du-dank, normal gait, normal tandem gait) Skin: Normal Color, Warm/Dry Lymphatic: No Adenopathy Results Results/Procedures Labs Laboratory Tests 03/17/22 14:26 03/18/22 04:35 Patient resulted labs reviewed. Short Stay Diagnosis Discharge Diagnosis-Short Stay Admission Diagnosis Assessment: Chest pain Non-STEMI Smoker Plan: Cardiology appreciated Cardiac cath Echo Final Discharge Diagnosis Assessment: Chest pain Non-STEMI Smoker Plan: Cardiology appreciated Cardiac cath Echo Conclusion Plan Cardiac cath Stop smoking KADI PAYNE DO March 18, 2022 05:47
[2022-03-18 05:48] LABS: TOTAL PROTEIN 7.2 GM/DL (6.4-8.2)
[2022-03-18 05:50] LABS: BILIRUBIN,TOTAL 0.5 MG/DL (0.1-1.0)
[2022-03-18 05:52] LABS: CREATININE SERUM 1.03 MG/DL (0.60-1.30)
[2022-03-18 07:26] VITALS: BP 163/91
[2022-03-18] MEDS: ASPIRIN E.C. 81 MG (ECOTRIN) TAB PO SCH (08:34)
[2022-03-18] MEDS: CLOPIDOGREL 75 MG (PLAVIX) TABLET PO SCH (08:34)
[2022-03-18] MEDS ORDERED: CLOPIDOGREL 75 MG (PLAVIX) TABLET PO SCH (09:00)
[2022-03-18] MEDS ORDERED: meTOprolol SUCCINATE 100 MG (TOPROL XL) TAB PO SCH (09:00)
[2022-03-18 12:00] VITALS: BP 154/88
[2022-03-18] MEDS ORDERED: HEParin (CATH LAB) 2,000 ML IV ONE (13:54)
[2022-03-18] MEDS ORDERED: LIDOCAINE 1% INJ 20 ML VIAL ONE (13:54)
[2022-03-18] MEDS ORDERED: NS IV 1000 ML 1,000 ML ONE (13:54)
[2022-03-18] MEDS ORDERED: fentaNYL INJ 100 MCG/2 ML AMP ONE (13:56)
[2022-03-18] MEDS ORDERED: MIDAZOLAM 5 MG/5 ML (VERSED) VIAL ONE (13:56)
[2022-03-18] MEDS ORDERED: ATOR40TA PO (15:13)
[2022-03-18] MEDS ORDERED: MTP25TSR PO (15:13)
[2022-03-18] MEDS ORDERED: ASPI-1238 PO (15:13)
[2022-03-18] MEDS ORDERED: HEParin 1000 UNIT/ML (10ML VIAL) FOR BOLUS ONE (15:21)
[2022-03-18] MEDS ORDERED: EPTIFIBATIDE BOLUS 10 ML IV ONE (15:22)
[2022-03-18] MEDS ORDERED: ATROPINE INJECTION 1 MG/10 ML SYR (ABBOTT) ONE ×2 (15:29→17:46)
[2022-03-18] MEDS ORDERED: NITRO DRIP 25000 MCG/D5W 250 ML IV ONE (15:33)
[2022-03-18] MEDS ORDERED: ASPIRIN 81 MG CHEW (CHILDREN'S ASA) ONE (15:59)
[2022-03-18] MEDS ORDERED: CLOPIDOGREL 300 MG (PLAVIX) TABLET PO ONE (15:59)
--- NOTE | 2022-03-18 16:10 | Progress Note - Cardiology ---
Cardiology SOAP Progress Note Subjective: No cp or palp or syncope or shortness of breath No n/v/d No focal weakness Objective: I&O/Vital Signs 03/18/22 03/18/22 03/18/22 03/18/22 06:58 07:00 07:26 08:18 Temp 36.0 Pulse 65 81 Resp 20 B/P (MAP) 163/91 (115) Pulse Ox 96 97 99 O2 Delivery Room Air Room Air Room Air O2 Flow Rate 0.00 03/18/22 03/18/22 12:00 12:17 Temp 36.2 Pulse 73 62 Resp 19 B/P (MAP) 154/88 (110) Pulse Ox 97 O2 Delivery Room Air 03/18/22 00:00 Intake Total 250 ml Balance 250 ml Weight (Pounds): 175 Weight (Calculated Kilograms): 79.193018 Constitutional: AAO x 3, well-developed, well-nourished Respiratory: No accessory muscle use, No respiratory distress; chest expansion is symmetric, chest is bilaterally symmetric, rhonchi (scattered with prolonged exp phase) Cardiovascular: regular rate-rhythm; No JVD; S1 and S2 Gastrointestional: No tender; soft, round, audible bowel sounds Extremities: no lower extremity edema bilateral Neurologic/Psychiatric: grossly intact (moves all extremities) Skin: No rash on exposed areas, No ulcerations on exposed areas Results/Procedures: Labs Laboratory Tests 03/18/22 04:35: White Blood Count 7.3, Red Blood Count 5.11, Hemoglobin 15.1, Hematocrit 44, Me an Corpuscular Volume 86, Mean Corpuscular Hemoglobin 30, Mean Corpuscular Hemoglobin Concent 34, Red Cell Distribution Width 13.8, Platelet Count 386, Mean Platelet Volume 9.7, Immature Granulocyte % (Auto) 0, Neutrophils (%) (Auto) 53, Lymphocytes (%) (Auto) 35, Monocytes (%) (Auto) 7, Eosinophils (%) (Auto) 3, Basophils (%) (Auto) 1, Neutrophils # (Auto) 3.9, Lymphocytes # (Auto) 2.6, Monocytes # (Auto) 0.5, Eosinophils # (Auto) 0.2, Basophils # (Auto) 0.1, Immature Granulocyte # (Auto) 0.0, Prothrombin Time 13.0, INR Comment 0.9, Activated Partial Thromboplast Time 39H, Sodium Level 138, Potassium Level 4.0, Chloride Level 106, Carbon Dioxide Level 20L, Anion Gap 12, Blood Urea Nitrogen 17, Creatinine 1.03, Estimat Glomerular Filtration Rate 82, BUN/Creatinine Ratio 17, Glucose Level 140H, Calcium Level 9.5, Corrected Calcium 9.4, Total Bilirubin 0.5, Aspartate Amino Transf (AST/SGOT) 15, Alanine Aminotransferase (ALT/SGPT) 16, Alkaline Phosphatase 108, Total Protein 7.2, Albumin 4.1, Triglycerides Level 179H, Cholesterol Level 184, LDL Cholesterol Direct 140H, VLDL Cholesterol 36, HDL Cholesterol 28L Laboratory Tests 03/17/22 14:26 03/18/22 04:35 A/P: Assessment: NSTEMI - Card cath on 03/18/22: moderate diffuse of L cor system; 50-60% mid LAD; moderately severe ostial disease of small caliber diags; 90% ostial stenosis of OM1; long stenosis of up to 80% in a co-dominant RCA successfully stented with Skypoint 2.75 x 38 at 20 traci; LVEDP 8 mmHg; mild inf wall hypokinesis; LVEF approx 50% Dizziness of undetermined etiology HTN - Echo on 03/18/22: mod conc LVH, LVEF 50-55%, grade I leal dysfunction, PASP 25- 30 mmHg HLD - treated with statin that was initiated on 03/17/22 H/O DM 2 H/O colon cancer - recent colon resection by Dr. Leal Tobaccoism - cessation advised Probable COPD Plan: * DAPT * BB * Statin * Advised to quit smoking immediately and completely * Discussed with him the cath findings and interventions undertaken MARIZA LEON MD FACP FACC CCDS March 18, 2022 16:10
--- NOTE | 2022-03-18 16:12 | Cardiac Procedure Note-CS/ASA ---
Pre-Procedure Note Pre-Op Procedure Note H&P Reviewed The H&P was reviewed, patient examined and no changes noted. Date H&P Reviewed: March 18, 2022 Time H&P Reviewed: 14:30 Conscious Sedation Pre-Proced Time 14:30 ASA Score 3 For ASA 3 and 4: Consider anesthesia and medical clearance. Also, for patients with a history of failed moderate sedation consider anesthesia. Airway Lungs Heart ASA score ASA 1: a normal healthy patient ASA 2: a patient with a mild systemic disease (mid diabetes, controlled hypertension, obesity ASA 3: a patient with a severe systemic disease that limits activity (angina, COPD, prior Myocardial infarction) ASA 4: a patient with an incapacitating disease that is a constant threat to life (CHF, renal failure) ASA 5: a moribund patient not expected to survive 24 hrs. (ruptured aneurysm) ASA 6: a declared brain- patient whose organs are being harvested. For emergent operations, add the letter E after the classification Mallampati Classification Grade 2 Sedation Plan Analgesia, Amnesia, Plan communicated to team members, Discussed options with patient/fam, Discussed risks with patient/fam The patient is an appropriate candidate to undergo the planned procedure, sedation, and anesthesia. The patient immediately re-assessed prior to indication. MARIZA LEON MD FACP FAC CCDS March 18, 2022 16:12
[2022-03-18] MEDS ORDERED: PATIENT MAY USE OWN MEDS, ALL PO SCH (16:15)
--- NOTE | 2022-03-18 16:15 | Progress Note - Cardiology ---
Cardiology SOAP Progress Note Subjective: No cp or palp or syncope or shortness of breath No n/v/d No focal weakness Objective: I&O/Vital Signs 03/18/22 03/18/22 03/18/22 03/18/22 06:58 07:00 07:26 08:18 Temp 36.0 Pulse 65 81 Resp 20 B/P (MAP) 163/91 (115) Pulse Ox 96 97 99 O2 Delivery Room Air Room Air Room Air O2 Flow Rate 0.00 03/18/22 03/18/22 12:00 12:17 Temp 36.2 Pulse 73 62 Resp 19 B/P (MAP) 154/88 (110) Pulse Ox 97 O2 Delivery Room Air 03/18/22 00:00 Intake Total 250 ml Balance 250 ml Weight (Pounds): 175 Weight (Calculated Kilograms): 79.565758 Constitutional: AAO x 3, well-developed, well-nourished Respiratory: No accessory muscle use, No respiratory distress; chest expansion is symmetric, chest is bilaterally symmetric, rhonchi (scattered with prolonged exp phase) Cardiovascular: regular rate-rhythm; No JVD; S1 and S2 Gastrointestional: No tender; soft, round, audible bowel sounds Extremities: no lower extremity edema bilateral Neurologic/Psychiatric: grossly intact (moves all extremities) Skin: No rash on exposed areas, No ulcerations on exposed areas Results/Procedures: Labs Laboratory Tests 03/18/22 04:35: White Blood Count 7.3, Red Blood Count 5.11, Hemoglobin 15.1, Hematocrit 44, Mean Corpuscular Volume 86, Mean Corpuscular Hemoglobin 30, Mean Corpuscular Hemoglobin Concent 34, Red Cell Distribution Width 13.8, Platelet Count 386, Mean Platelet Volume 9.7, Immature Granulocyte % (Auto) 0, Neutrophils (%) (Auto) 53, Lymphocytes (%) (Auto) 35, Monocytes (%) (Auto) 7, Eosinophils (%) (Auto) 3, Basophils (%) (Auto) 1, Neutrophils # (Auto) 3.9, Lymphocytes # (Auto) 2.6, Monocytes # (Auto) 0.5, Eosinophils # (Auto) 0.2, Basophils # (Auto) 0.1, Immature Granulocyte # (Auto) 0.0, Prothrombin Time 13.0, INR Comment 0.9, Activated Partial Thromboplast Time 39H, Sodium Level 138, Potassium Level 4.0, Chloride Level 106, Carbon Dioxide Level 20L, Anion Gap 12, Blood Urea Nitrogen 17, Creatinine 1.03, Estimat Glomerular Filtration Rate 82, BUN/Creatinine Ratio 17, Glucose Level 140H, Calcium Level 9.5, Corrected Calcium 9.4, Total Bilirubin 0.5, Aspartate Amino Transf (AST/SGOT) 15, Alanine Aminotransferase (ALT/SGPT) 16, Alkaline Phosphatase 108, Total Protein 7.2, Albumin 4.1, Triglycerides Level 179H, Cholesterol Level 184, LDL Cholesterol Direct 140H, VLDL Cholesterol 36, HDL Cholesterol 28L A/P: Assessment: NSTEMI - Card cath on 03/18/22: moderate diffuse of L cor system; 50-60% mid LAD; moderately severe ostial disease of small caliber diags; 90% ostial stenosis of OM1; long stenosis of up to 80% in a co-dominant RCA successfully stented with Skypoint 2.75 x 38 at 20 traci; LVEDP 8 mmHg; mild inf wall hypokinesis; LVEF approx 50% Dizziness of undetermined etiology HTN - Echo on 03/18/22: mod conc LVH, LVEF 50-55%, grade I leal dysfunction, PASP 25- 30 mmHg HLD - treated with statin that was initiated on 03/17/22 H/O DM 2 H/O colon cancer - recent colon resection by Dr. Leal Tobaccoism - cessation advised Probable COPD Plan: * DAPT * BB * Statin * Advised to quit smoking immediately and completely * Discussed with him the cath findings and interventions undertaken MARIZA LEON MD FACP FAC CCDS March 18, 2022 16:15
[2022-03-18] MEDS: NS IV 1000 ML 1,000 ML IV SCH ×3 (17:00)
[2022-03-18] MEDS ORDERED: oxyCODONE/APAP 5/325MG (PERCOCET 5) TABLET PO PRN (17:00)
[2022-03-18] MEDS ORDERED: ACETAMINOPHEN 325 MG TABLET PO PRN (17:00)
[2022-03-18] MEDS ORDERED: fentaNYL INJ 100 MCG/2 ML AMP IVP ONE (17:30)
--- NOTE | 2022-03-18 18:27 | CARDIAC CATHETERIZATION ---
DATE OF SERVICE: 03/18/2022 CARDIAC CATHETERIZATION AND CORONARY INTERVENTION The patient is a 61-year-old man who was admitted with acute non-ST elevation myocardial infarction. Cardiac catheterization was recommended. Informed consent was obtained. DESCRIPTION OF PROCEDURE: He was brought to the cardiac catheterization laboratory in a fasting state. Right groin was prepared and draped in the usual sterile fashion. Lidocaine 1% was used for local anesthesia. Modified Seldinger technique was used to advance a 5-Mauritian sheath in right femoral artery, 5-Mauritian JL4 catheter for left coronary angiography, 5-Mauritian JR4 catheter for right coronary angiography, 5-Mauritian pigtail catheter was used for left heart catheterization and left ventricular angiography. Subsequently, percutaneous intervention was carried out in the right coronary artery that is described below. PERCUTANEOUS INTERVENTION OF THE RIGHT CORONARY ARTERY: We exchanged the sheath over a wire for a 6-Mauritian sheath. We gave 4000 units of intravenous heparin and double bolus of Integrilin. We used a 6-Mauritian JR4 guide catheter to engage the right coronary artery. We then advanced a BMW wire across the lesion in the right coronary artery and the tip was placed in the distal vessel. The right coronary artery had up to 80% stenosis in the mid vessel and this was a very long lesion. We carried out balloon angioplasty with 2.5 x 30 mm balloon and then stented the lesion with a Skypoint 2.75 x 38 mm stent that was deployed at 20 atmospheres. Subsequent angiography reveals 0% residual stenosis at the previous site of up to 80% stenosis and flow throughout the vessel is normal (ADAM 3). LEFT VENTRICULAR ANGIOGRAPHY: Left ventricular angiography was carried out in the right anterior oblique projection. Global left ventricular systolic function is fairly well preserved. Ejection fraction approximately 50%. There appears to be mild inferior wall hypokinesis. HEMODYNAMICS: Left ventricular end-diastolic pressure following coronary angiography was 8 mmHg. There is no significant pressure gradient on pullback across the aortic valve. CORONARY ANGIOGRAPHY: Left main coronary artery is free of significant disease. Left anterior descending artery had diffuse mild to moderate disease. In the mid left anterior descending, there is approximately 50 to 60% stenosis. Small caliber diagonal branches have moderately severe ostial disease. Left circumflex artery is codominant. The first obtuse marginal branch, the left circumflex artery has 90% ostial stenosis. The right coronary artery is codominant. It had a long stenosis, which was up to 80% in its mid vessel. This appeared to be the culprit lesion, given the wall motion abnormality (inferior wall). To this, successful intervention was carried out, following deployment of Skypoint 2.75 x 38 mm stent (at 20 atmospheres), there is no significant residual stenosis. CONCLUSIONS: 1. Coronary artery disease consisting of mild to moderate diffuse disease of the left coronary system, 50 to 60% mid vessel stenosis of the left anterior descending, moderately severe disease of small caliber diagonals, 90% stenosis of the first obtuse marginal branch of the left circumflex, and a long up to 80% stenosis of the mid right coronary. The mid right coronary appeared to be the culprit lesion and was stented with Skypoint 2.75 x 38 mm stent with reduction of stenosis to 0% residual. 2. Mild inferior wall hypokinesis. 3. Well preserved global left ventricular systolic function with ejection fraction approximately 50%. 4. Left ventricular end-diastolic pressure 8 mmHg. DISCUSSION AND RECOMMENDATIONS: He has been advised to quit smoking immediately and completely. Treatment is with dual antiplatelet regimen, beta blockers, and statins. Job ID: [id number] DocumentID: [id number] Dictated Date: 03/18/2022 16:00:41 Inside Sales Person Date: 03/18/2022 18:26:45 Dictated By: MARIZA LEON MD, MA, FACP, FACC,
[2022-03-18 21:00] VITALS: BP 126/94
[2022-03-19] VITALS: BP 141/91
[2022-03-19 04:00] VITALS: BP 139/85
[2022-03-19 04:59] LABS: BASOPHILS # (AUTO) 0.1 10^3/uL (0.0-0.1); BASOPHILS % (AUTO) 1 % (0-10); EOSINOPHILS # (AUTO) 0.2 10^3/uL (0.0-0.3); EOSINOPHILS % (AUTO) 2 % (0-10); HEMATOCRIT 45 % (40-54); HEMOGLOBIN 15.7 g/dL (13.3-17.7); LYMPHOCYTES # (AUTO) 2.2 10^3/uL (1.0-4.0); LYMPHOCYTES % (AUTO) 26 % (12-44); MEAN CORPUSCULAR HEMOGLOBIN 30 pg (25-34); MEAN CORPUSCULAR HGB CONC 35 g/dL (32-36); MEAN CORPUSCULAR VOLUME 86 fL (80-99); MEAN PLATELET VOLUME 9.5 fL (9.0-12.2); MONOCYTES # (AUTO) 0.7 10^3/uL (0.0-1.0); MONOCYTES % (AUTO) 8 % (0-12); NEUTROPHILS # (AUTO) 5.5 10^3/uL (1.8-7.8); NEUTROPHILS % (AUTO) 63 % (42-75); PLATELET COUNT 412 10^3/uL (130-400); WHITE BLOOD COUNT 8.6 10^3/uL (4.3-11.0)
[2022-03-19 05:23] LABS: POTASSIUM 3.9 MMOL/L (3.6-5.0)
[2022-03-19 05:24] LABS: CALCIUM 9.4 MG/DL (8.5-10.1)
[2022-03-19 05:28] LABS: CREATININE SERUM 1.06 MG/DL (0.60-1.30)
[2022-03-19 05:31] LABS: MAGNESIUM 2.1 MG/DL (1.6-2.4)
--- NOTE | 2022-03-19 05:51 | Discharge Summary ---
Discharge Summary Hospital Course Was the Problem List Reviewed?: Yes Problems/Dx: (1) NSTEMI (non-ST elevated myocardial infarction) Status: Acute Hospital Course Date of Admission: March 17, 2022 at 15:17 Admission Diagnosis : Family Physician/Provider: Rosemarie Ann Aprn Date of Discharge: 03/19/22 Discharge Diagnosis: NSTEMI s/p cath with stent Hospital Course: Pt had an uneventful hospital course. He was in STEMI; he underwent cardiac catheterization by Dr. Kirby. A stent was deployed. He had an uneventful hospital course and was discharged in improved condition. Labs and Pending Lab Test: Laboratory Tests 03/19/22 04:49: White Blood Count 8.6, Red Blood Count 5.26, Hemoglobin 15.7, Hematocrit 45, Mean Corpuscular Volume 86, Mean Corpuscular Hemoglobin 30, Mean Corpuscular Hemoglobin Concent 35, Red Cell Distribution Width 13.7, Platelet Count 412H, Mean Platelet Volume 9.5, Immature Granulocyte % (Auto) 0, Neutrophils (%) (Auto) 63, Lymphocytes (%) (Auto) 26, Monocytes (%) (Auto) 8, Eosinophils (%) (Auto) 2, Basophils (%) (Auto) 1, Neutrophils # (Auto) 5.5, Lymphocytes # (Auto) 2.2, Monocytes # (Auto) 0.7, Eosinophils # (Auto) 0.2, Basophils # (Auto) 0.1, Immature Granulocyte # (Auto) 0.0, Sodium Level 137, Potassium Level 3.9, Chloride Level 104, Carbon Dioxide Level 20L, Anion Gap 13, Blood Urea Nitrogen 17, Creatinine 1.06, Estimat Glomerular Filtration Rate 79, BUN/Creatinine Ratio 16, Glucose Level 130H, Calcium Level 9.4, Magnesium Level 2.1 Home Meds Active Aspirin EC (Aspirin) 81 Mg Tablet.dr 81 Mg PO DAILY Metoprolol Succinate 25 Mg Tab.er.24h 50 Mg PO DAILY Lipitor (Atorvastatin Calcium) 40 Mg Tablet 40 Mg PO HS Assessment/Pt Instructions PCP 1 week Discharge Planning: <30 minutes discharge planning Discharge Instructions Discharge Diet: No Restrictions Discharge Physical Examination Vital Signs Vital Signs Date Time Temp Pulse Resp B/P (MAP) Pulse Ox O2 Delivery O2 Flow Rate FiO2 03/19/22 04:00 36.7 03/19/22 01:00 66 03/19/22 00:00 12 141/91 (108) 99 Room Air 03/18/22 18:54 0.00 03/17/22 16:30 21 General Appearance: No Apparent Distress, WD/WN, Chronically ill Respiratory: Lungs Clear, Normal Breath Sounds Cardiovascular: Regular Rate, Rhythm Neurologic/Psychiatric: Alert, Oriented x3 Allergies: Coded Allergies: No Known Drug Allergies (Unverified , 04/01/16) Discharge Summary Date of Admission March 17, 2022 at 15:17 Date of Discharge Discharge Date: March 19, 2022 Admission Diagnosis Assessment: Chest pain Non-STEMI Smoker Plan: Cardiology appreciated Cardiac cath Echo Discharge Diagnosis Cardiac cath Stop smoking KADI PAYNE DO March 19, 2022 05:51
[2022-03-19] MEDS: NS IV 1000 ML 1,000 ML IV SCH ×3 (07:50→10:45)
[2022-03-19 07:58] VITALS: BP 129/79
[2022-03-19] MEDS: CLOPIDOGREL 75 MG (PLAVIX) TABLET PO SCH (08:38)
[2022-03-19] MEDS: ASPIRIN E.C. 81 MG (ECOTRIN) TAB PO SCH (08:38)
[2022-03-19 11:30] VITALS: BP 141/83
[2022-03-19] MEDS ORDERED: CLOP75TA28 PO (14:10)
[2022-03-19 14:32] VITALS: BP 141/83
--- NOTE | 2022-03-19 17:25 | Progress Note - Cardiology ---
Cardiology SOAP Progress Note Subjective: No cp or palp or syncope or shortness of breath No groin or leg discomfort or discoloration No n/v/d No focal weakness Objective: I&O/Vital Signs 03/19/22 03/19/22 03/19/22 03/19/22 07:00 07:58 08:30 11:30 Temp 36.4 36.8 Pulse 78 78 76 Resp 12 16 B/P (MAP) 129/79 (96) 141/83 (102) Pulse Ox 96 96 O2 Delivery Room Air Room Air Room Air 03/19/22 03/19/22 12:47 14:32 Temp 36.8 Pulse 80 80 Resp 16 B/P (MAP) 141/83 Pulse Ox 96 O2 Delivery Room Air 03/19/22 00:00 Intake Total 1050 ml Balance 1050 ml Weight (Pounds): 175 Weight (Calculated Kilograms): 79.650677 Condition: DP/PT pulses palpable Bruising: mild bruising Constitutional: AAO x 3, well-developed, well-nourished Respiratory: No accessory muscle use, No respiratory distress; chest expansion is symmetric, chest is bilaterally symmetric, rhonchi (scattered with prolonged exp phase) Cardiovascular: regular rate-rhythm; No JVD; S1 and S2 Gastrointestional: No tender; soft, round, audible bowel sounds Extremities: no lower extremity edema bilateral Neurologic/Psychiatric: grossly intact (moves all extremities) Skin: No rash on exposed areas, No ulcerations on exposed areas Results/Procedures: Labs Laboratory Tests 03/19/22 04:49: White Blood Count 8.6, Red Blood Count 5.26, Hemoglobin 15.7, Hematocrit 45, Mean Corpuscular Volume 86, Mean Corpuscular Hemoglobin 30, Mean Corpuscular Hemoglobin Concent 35, Red Cell Distribution Width 13.7, Platelet Count 412H, Mean Platelet Volume 9.5, Immature Granulocyte % (Auto) 0, Neutrophils (%) (Auto) 63, Lymphocytes (%) (Auto) 26, Monocytes (%) (Auto) 8, Eosinophils (%) (Auto) 2, Basophils (%) (Auto) 1, Neutrophils # (Auto) 5.5, Lymphocytes # (Auto) 2.2, Monocytes # (Auto) 0.7, Eosinophils # (Auto) 0.2, Basophils # (Auto) 0.1, Immature Granulocyte # (Auto) 0.0, Sodium Level 137, Potassium Level 3.9, Chlo ride Level 104, Carbon Dioxide Level 20L, Anion Gap 13, Blood Urea Nitrogen 17, Creatinine 1.06, Estimat Glomerular Filtration Rate 79, BUN/Creatinine Ratio 16, Glucose Level 130H, Calcium Level 9.4, Magnesium Level 2.1 Laboratory Tests 03/18/22 04:35 03/19/22 04:49 A/P: Assessment: NSTEMI - Card cath on 03/18/22: moderate diffuse of L cor system; 50-60% mid LAD; moderately severe ostial disease of small caliber diags; 90% ostial stenosis of OM1; long stenosis of up to 80% in a co-dominant RCA successfully stented with Skypoint 2.75 x 38 at 20 traci; LVEDP 8 mmHg; mild inf wall hypokinesis; LVEF approx 50% Dizziness of undetermined etiology HTN - Echo on 03/18/22: mod conc LVH, LVEF 50-55%, grade I leal dysfunction, PASP 25- 30 mmHg HLD - treated with statin that was initiated on 03/17/22 H/O DM 2 H/O colon cancer - recent colon resection by Dr. Leal Tobaccoism - cessation advised Probable COPD Plan: * DAPT * BB * Statin * Advised to quit smoking immediately and completely * I again discussed with him the cath findings and interventions undertaken * Outpt f/u in 2 weeks, or earlier if needed MARIZA LEON MD FACP FAC CCDS March 19, 2022 17:25
== END 2022-03-19 14:38 | disposition home or self-care (01) | DRG 247 ==
LOC: EDUNIT# 13:55 → ER 13:56 → CSD 15:17
PROVIDERS: ADMIT Family Medicine; ATTEND Internal Medicine
PROC: 027034Z Dilation of Coronary Artery, One Artery with Drug-eluting Intraluminal Device, Percutaneous Approach (ICD-10-PCS; principal; 2022-03-17)
PROC: 4A023N7 Measurement of Cardiac Sampling and Pressure, Left Heart, Percutaneous Approach (ICD-10-PCS; 2022-03-17)
PROC: B2111ZZ Fluoroscopy of Multiple Coronary Arteries using Low Osmolar Contrast (ICD-10-PCS; 2022-03-17)
PROC: B2151ZZ Fluoroscopy of Left Heart using Low Osmolar Contrast (ICD-10-PCS; 2022-03-17)
DX: I21.4 Non-ST elevation (NSTEMI) myocardial infarction (principal); E11.9 Type 2 diabetes mellitus without complications; F17.210 Nicotine dependence, cigarettes, uncomplicated; F12.90 Cannabis use, unspecified, uncomplicated; I10 Essential (primary) hypertension; R42 Dizziness and giddiness; E78.5 Hyperlipidemia, unspecified; Z85.038 Personal history of other malignant neoplasm of large intestine; Z90.49 Acquired absence of other specified parts of digestive tract; J44.9 Chronic obstructive pulmonary disease, unspecified
CPT/HCPCS: 36415; 70450; 80048; 80053; 80061; 83735; 84484; 85025; 85027; 85610; 85730; 93005; 93306; 93458

== ENCOUNTER → 2022-04-12 | Outpatient (CLI) | payer OTHER ==
[~2022-04-12] MED LIST changes: +ASPI-1238 PO; +ATOR40TA PO; +CLOP75TA28 PO; +MTP25TSR PO
[2022-04-12 10:14] LABS: ALBUMIN 4.3 GM/DL (3.2-4.5); BILIRUBIN,TOTAL 0.6 MG/DL (0.1-1.0); CALCIUM 9.7 MG/DL (8.5-10.1); CREATININE SERUM 1.49 MG/DL (0.60-1.30); POTASSIUM 4.7 MMOL/L (3.6-5.0); TOTAL PROTEIN 7.7 GM/DL (6.4-8.2)
== END ==
LOC: LAB 04-11 13:54
PROVIDERS: ATTEND Nurse Practitioner Family
DX: I25.10 Atherosclerotic heart disease of native coronary artery without angina pectoris (principal); I10 Essential (primary) hypertension; E78.2 Mixed hyperlipidemia; I65.23 Occlusion and stenosis of bilateral carotid arteries; Z72.0 Tobacco use
CPT/HCPCS: 36415; 80053; 80061

== ENCOUNTER → 2022-09-23 | Outpatient (CLI) | payer OTHER ==
[~2022-09-23] MED LIST changes: +CATHETER FLUSH 10 ML SYR IV PRN; +HOLD METFORMIN - RECEIVED CONTRAST 20 ML VIAL IV SCH; +IOHEXOL 350 MG/ML 100 ML (OMNIPAQUE 350) VIAL IV ONE; +NS 100 ML (IVPB) BAG IV ONE
[2022-09-23 12:05] LABS: CREATININE SERUM 1.8 MG/DL (0.60-1.30)
--- NOTE | 2022-09-23 13:22 | Diagnostic Imaging Report ---
PROCEDURE: CT abdomen and pelvis with contrast. TECHNIQUE: Multiple contiguous axial images were obtained through the abdomen and pelvis after administration of intravenous contrast. Auto Exposure Controls were utilized during the CT exam to meet ALARA standards for radiation dose reduction. All CT scans use one or more of the following dose optimizing techniques: automated exposure control, MA and/or KvP adjustment based on patient size and exam type or iterative reconstruction. INDICATION: Upper abdominal pain. Swelling. History of colon cancer. Previous partial colectomy. COMPARISON: CT chest dated 02/14/2022 FINDINGS: Included portions of the lung bases show bibasilar micronodules measuring 6 mm on the left and 4 to 5 mm on the right (images 9 and 26, series 2). These are stable when compared to 02/14/2022. Background emphysematous changes are also present. CT ABDOMEN: Patient is status post previous partial hemicolectomy. Normal appendix is identified. Small bowel loops are nondistended. Benign-appearing bilateral renal cysts are noted. Otherwise, kidneys, adrenal glands, spleen, pancreas, and liver have a normal CT appearance. Small gallstones are noted. There is no appreciable gallbladder wall thickening or pericholecystic free fluid. There is no loculated fluid collection, free fluid, nor free air within the abdomen. No abnormal mesenteric or retroperitoneal adenopathy is seen. Osseous structures show no acute abnormalities. Note is made of advanced diffuse calcified and noncalcified aortic and arterial atherosclerosis. These findings are greater than expected given patient's age. CT PELVIS: There is profound thickening of the urinary bladder wall. This is much greater than expected to be artifactual and related to incomplete distention. Urinary bladder wall measures 1.2 cm in diameter. Multiple small diverticula are also noted. No calculi are seen within the urinary bladder. There is no loculated fluid collection, free fluid or free air within the pelvis. No abnormal adenopathy is seen. Osseous structures show no acute abnormalities. IMPRESSION: 1. Profound urinary bladder wall thickening. Again, this is much greater than expected to be artifactual and related to incomplete distention. Given the presence of multiple diverticula, chronic bladder outlet obstruction is suspected. 2. Cholelithiasis, but no CT evidence of acute cholecystitis. 3. Small micronodules are seen within both lung bases. Please refer to previous CT chest dated 02/14/2022 for recommendations. 4. Advanced diffuse calcified and noncalcified aortic and arterial atherosclerosis. Correlation with underlying risk factors such as history of smoking is advised. Dictated by: Dictated on workstation # [id number]
== END ==
LOC: RAD 11:36
PROVIDERS: ATTEND Surgery
DX: N32.89 Other specified disorders of bladder (principal); K80.20 Calculus of gallbladder without cholecystitis without obstruction; R91.8 Other nonspecific abnormal finding of lung field; I70.0 Atherosclerosis of aorta; Z90.49 Acquired absence of other specified parts of digestive tract; Z85.038 Personal history of other malignant neoplasm of large intestine
CPT/HCPCS: 36415; 74177; 82565; 84520

== ENCOUNTER → 2022-11-01 | Outpatient (CLI) | payer OTHER ==
[~2022-11-01] MED LIST changes: -HOLD METFORMIN - RECEIVED CONTRAST 20 ML VIAL IV SCH
--- NOTE | 2022-11-01 13:27 | Diagnostic Imaging Report ---
PROCEDURE: CT chest with contrast only. TECHNIQUE: Multiple contiguous axial images were obtained through the chest after administration of intravenous contrast. Auto Exposure Controls were utilized during the CT exam to meet ALARA standards for radiation dose reduction. DATE: November 01, 2022. COMPARISON: CT chest February 14, 2022. INDICATION: 62-year-old male, evaluation of pulmonary nodule. FINDINGS: There is a 4 mm noncalcified right upper lobe pulmonary nodule on current axial image 44 which is unchanged since at least February 14, 2022. There is a somewhat polygonal nodule in the right upper lobe on axial image 81 measuring 7 mm in size which is unchanged since February 14, 2022. This is a pleurally based and well demonstrated on sagittal image 54. There is a 2 mm pleural-based left upper lobe pulmonary nodule on axial image 76 which is unchanged. There is a pleurally based 4 mm nodule along the left-sided fissure on axial image 26 which is unchanged. There is no identified new or enlarging pulmonary nodule. There are upper lobe predominant findings of emphysema. There are very mild dependent areas of atelectasis in the lower lobes. There is no additional focal airspace consolidation. There is no pneumothorax. There is no pleural effusion. The central airways are patent. The heart is not enlarged. There is no pericardial effusion. There are fairly prominent atherosclerotic calcifications. There is no identified abnormally enlarged mediastinal, hilar, or axillary lymph node meeting CT size criteria for adenopathy. Evaluation of the imaged portions of the upper abdomen is grossly unremarkable. There are multilevel degenerative changes of the spine. There is no identified acute bony abnormality. IMPRESSION: CT CHEST. 1. Stable subcentimeter pulmonary nodules bilaterally since February 14, 2022. No new or enlarging pulmonary nodule. Followup CT chest without contrast in 6 months to evaluate for continued stability is recommended. 2. Upper lobe predominant findings of emphysema. Dictated by: Dictated on workstation # [id number]
== END ==
LOC: RAD 10:22
PROVIDERS: ATTEND Surgery
DX: R91.8 Other nonspecific abnormal finding of lung field (principal); J43.9 Emphysema, unspecified
CPT/HCPCS: 71260

== ENCOUNTER → 2023-07-11 | Outpatient (CLI) | payer OTHER ==
[~2023-07-11] MED LIST changes: -CATHETER FLUSH 10 ML SYR IV PRN; -IOHEXOL 350 MG/ML 100 ML (OMNIPAQUE 350) VIAL IV ONE; -NS 100 ML (IVPB) BAG IV ONE
--- NOTE | 2023-07-11 15:46 | Diagnostic Imaging Report ---
CT CHEST WO TECHNIQUE: Multiple contiguous axial images were obtained through the chest without the use of intravenous contrast. All CT scans use one or more of the following dose optimizing techniques: automated exposure control, MA and/or KvP adjustment based on a patient size and exam type, or iterative reconstruction. INDICATION: Pulmonary nodule followup. COMPARISON: 11/01/2022 FINDINGS: Lungs and airway: No abnormality of the trachea. Moderate paraseptal and centrilobular emphysema is unchanged. There is no pneumonia or edema. Scattered bilateral pulmonary nodules with the lung bases are unchanged. The largest triangular nodule along the minor fissure measures 7 mm maximally. The other rounded or ovoid nodules measure no more than 5 mm. No suspicious pulmonary nodules have developed. Pleura: No pleural effusion or pneumothorax. Heart and mediastinum: Visualized portion of the thyroid are normal. No supraclavicular or axillary lymphadenopathy. No mediastinal or hilar lymphadenopathy. The heart is normal in size without pericardial effusion. Moderate calcifications throughout the normal caliber thoracic aorta are unchanged. Upper abdomen: Unchanged marked hypoattenuation throughout the liver indicative of steatosis. Musculoskeletal: No worrisome focal osseous lesions. IMPRESSION: 1. Multiple bilateral small pulmonary nodules are stable for greater than a year. Given stability and size, these can be considered benign and require no additional dedicated followup imaging. 2. If patient meets criteria, then consideration could be given to initiation of low-dose CT chest in 12 months for lung cancer screening. Dictated by: Dictated on workstation # [id number]
== END ==
LOC: RAD 13:40
PROVIDERS: ATTEND Surgery
DX: R91.8 Other nonspecific abnormal finding of lung field (principal)
CPT/HCPCS: 71250

== ENCOUNTER 2023-07-12 05:41 | Outpatient (CLI) | payer OTHER ==
[~2023-07-12] VITALS: Ht 177.8 cm; Wt 83.5 kg
== END 2023-07-12 09:47 | disposition home or self-care (01) ==
LOC: PREOP 05:41
PROVIDERS: ATTEND Surgery
DX: Z01.818 Encounter for other preprocedural examination (principal)

== ENCOUNTER → 2023-08-16 | Outpatient (CLI) | payer OTHER ==
--- NOTE | 2023-08-16 13:36 | Diagnostic Imaging Report ---
PROCEDURE: US Gallbladder. TECHNIQUE: Multiple real-time grayscale images were obtained over the right upper quadrant in various projections. INDICATION: Right upper quadrant abdominal pain. FINDINGS: Liver measures 16 cm in length without evidence of focal abnormality. There is no significant biliary ductal dilatation. There is an approximately 0.4 cm echogenic focus adjacent to the wall of the gallbladder without pericholecystic fluid. Pancreas, aorta, and inferior vena cava are obscured by overlying bowel. No right renal abnormality or free fluid is seen. IMPRESSION: Probable 0.4 cm adherent stone or polyp in the gallbladder lumen without secondary sign of acute cholecystitis or biliary ductal dilatation. Dictated by: Dictated on workstation # [id number]
== END ==
LOC: RAD 12:10
PROVIDERS: ATTEND Surgery
DX: R10.11 Right upper quadrant pain (principal)
CPT/HCPCS: 76705

== ENCOUNTER → 2023-09-11 | Outpatient (CLI) | payer OTHER ==
[~2023-09-11] VITALS: Ht 177.8 cm; Wt 83.5 kg
== END | disposition home or self-care (01) ==
LOC: PREOP 05:30
PROVIDERS: ATTEND Surgery
DX: Z01.818 Encounter for other preprocedural examination (principal)

== ENCOUNTER 2023-09-14 08:51 | Day surgery (SDC) | payer OTHER, MEDICARE ==
[~2023-09-14] VITALS: Ht 177.8 cm; Wt 83.5 kg
[2023-09-14] VITALS (13 sets, daily range): BP systolic 113–203; BP diastolic 56–102
[2023-09-14] MEDS ORDERED: ceFAZolin INJECTION 2,000 MG in NS (IVPB) 50 ML 50 ML IV ONE (09:00)
[2023-09-14] MEDS ORDERED: LIDOCAINE 2% w/EPI 1:100,000 20 ML VIAL ONE (09:21)
[2023-09-14] MEDS: LACTATED RINGERS 1,000 ML 1,000 ML IV PRN ×2 (09:28→11:40)
[2023-09-14] MEDS ORDERED: LIDOCAINE PF 2% 5 ML VIAL ONE (10:10)
[2023-09-14] MEDS ORDERED: ONDANSETRON INJECTION 4 MG/2 ML (SDV) ONE (10:10)
[2023-09-14] MEDS ORDERED: ROCURONIUM 50 MG/5 ML VIAL IV ONE (10:10)
[2023-09-14] MEDS ORDERED: dexAMETHasone INJ 10 MG/ML 1 ML VIAL ONE (10:10)
[2023-09-14] MEDS ORDERED: fentaNYL INJECTION 100 MCG/2 ML VIAL ONE (10:10)
[2023-09-14] MEDS ORDERED: proPOfol INJECTION 200 MG/20 ML VIAL IV ONE (10:10)
[2023-09-14] MEDS ORDERED: MIDAZOLAM INJ 2 MG/2 ML VIAL ONE (10:10)
[2023-09-14] MEDS ORDERED: SEVOFLURANE (ULTANE) 15 ML INHAL SOLN ONE ×2 (10:10→11:30)
[2023-09-14] MEDS ORDERED: DOCU-143 PO (11:26)
[2023-09-14] MEDS ORDERED: ACHD5005 PO (11:26)
--- NOTE | 2023-09-14 11:33 | Discharge Inst-Simple/Standard ---
Discharge Inst-Standard Discharge Medications New, Converted or Re-Newed RX: Transmitted to Pharmacy Patient Instructions/Follow Up Plan of Care/Instructions/FU: 2 weeks Elvis Activity as Tolerated: Yes Discharge Diet: Regular Diet Other Inst to Patient Follow up Appt: Make appointment for 2 weeks. Instructions: No lifting greater than 10 pounds. No strenuous activity. May shower in 24 hours, no tub bath or soaking. Use incentive spirometer at home as directed. No Smoking Skin/Wound Care: You have special glue over incision, it will fall off on it's own. Symptoms to Report: Appetite Changes, Extremity Discoloration, Numbness/Tingling, Swelling Increased, Bleeding Excessive, Eyesight Changes, Pain Increased, Urine Color Change, Constipation(Persistent), Fever over 101 degree F, Pain/Pressure in chest, Urinating Difficulty, Cough Up/Vomit Blood, Heart Beat Irreg/Pounding, Pain/Pressure in jaw, Vaginal Bleeding Increase, Cramps in feet or legs, Lightheadedness, Pain/Pressure in shoulder, Diarrhea(Persistent), Memory Changes Suddenly, Questions/Concerns, Weight gain consecutive days, Dizziness/Fainting, Nausea/Vomiting, Shortness of Breath, Weight gain over 2 pounds. If eyes or skin turn yellow notify physician. If questions or concerns contact your physician Or seek help at emergency department. JB LEUNG DO Sep 14, 2023 11:33
[2023-09-14] MEDS ORDERED: morphine INJ 10 MG/ML 1ML (SYR OR VIAL) ONE (11:35)
--- NOTE | 2023-09-14 11:37 | Anesthesia-General Post-Op ---
General Patient Condition Mental Status/LOC: Same as Preop Cardiovascular: Satisfactory Nausea/Vomiting: Absent Respiratory: Satisfactory Pain: Controlled Complications: Absent Post Op Complications Complications None Follow Up Care/Instructions Patient Instructions None needed. Anesthesia/Patient Condition Patient Condition Patient is doing well, no complaints, stable vital signs, no apparent adverse anesthesia problems. No complications reported per nursing. CHET MURRELL CRNA Sep 14, 2023 11:37
--- NOTE | 2023-09-14 11:39 | Progress Note-Post Operative ---
Post-Operative Progess Note Surgeon (s)/Medical Supply Technician (s) Surgeon JB LEUNG DO Medical Supply Technician: Dr. Clement to assist in retraction dissection and closure. Pre-Operative Diagnosis Cholelithiasis, RUQ abdominal pain Post-Operative Diagnosis same, intraabdominal adhesions. Procedure & Operative Findings Date of Procedure 09/14/23 Procedure Performed/Findings l PROCEDURE: Laparoscopic cholecystectomy with intraoperative cholangiogram. COMPLICATIONS: None. PROCEDURE: The patient was taken to the operating suite and was prepped and draped in sterile fashion. A surgical pause was performed. Left upper quadrant, a 12 mm incision was made. Dissection was taken down to the fascia opened and muscle divided, posterior fascia divied and hyde trocar inserted.Pneumoperitoneum was achieved. A 5mm trochar place in the subxyphoid and 2 in the right upper quadrant. The gallbladder was then grasped and elevated. A 5 mm trocar inserted near umbilicus. The adhesions were taken down with blunt and scissor cautery. Dr. Clement then grasped gallbladder and the cystic duct, and cystic artery were then dissected out. Clip was placed on the distal portion of the cystic duct which was then partially transected. An arrow catheter was inserted into the duct. The cholangiogram was then performed. No filing defects and contrast made its way into the duodenum. Catheter removed. Clips were placed on proximal portion of the cystic duct and then the duct was then transected. Clips were placed along the proximal and distal portion of the cystic artery which was then transected. Hook cautery was used to dissect the gallbladder from the gallbladder fossa achieving hemostasis. The gallbladder was placed in an Endobag and removed through the 12 mm trocar site. The abdomen was then reinspected. Copious amounts of irrigation were used to irrigate the abdomen and there were no signs of active bleeding. Hemostasis had been achieved. The 12 mm fascial defect was then closed with 0 Vicryl suture with [id number] fashion. The abdomen was then desufflated, the trocars were removed. The abdomen was then washed and dried. The skin was then closed using 4-0 Monocryl in a subcuticular fashion. The abdomen was washed and dried and Skin Affix was place over incisions. Patient tolerated the procedure well without any complications and was taken to the recovery room in stable condition. Anesthesia Type general Estimated Blood Loss Estimated blood loss (mL): minimal Specimens/Packing Specimens Removed gallbladder JB LEUNG DO Sep 14, 2023 11:38
[2023-09-14] MEDS ORDERED: HYDROmorphone INJECTION 2 MG/ML VIAL ONE (11:43)
[2023-09-14] MEDS ORDERED: fentaNYL INJECTION 100 MCG/2 ML VIAL IVP ONE (11:45)
[2023-09-14] MEDS ORDERED: morphine INJ 10 MG/ML 1ML (SYR OR VIAL) IVP ONE (11:45)
[2023-09-14] MEDS ORDERED: PROMETHAZINE INJ 25 MG/ML VIAL IVP ONE (11:45)
[2023-09-14] MEDS ORDERED: HYDROmorphone INJECTION 2 MG/ML VIAL IV ONE (11:45)
[2023-09-14] MEDS ORDERED: ONDANSETRON INJECTION 4 MG/2 ML (SDV) IVP PRN (11:45)
[2023-09-14] MEDS ORDERED: MEPERIDINE INJ 50 MG/ML VIAL IVP ONE (11:45)
--- NOTE | 2023-09-14 17:06 | Diagnostic Imaging Report ---
INDICATION: Intraoperative cholangiogram following cholecystectomy COMPARISON: None available. IMPRESSION: Images show contrast opacifying the residual cystic duct, common bile duct and reflux into the intrahepatic radicals. There are no filling defects indicate choledocholithiasis. Contrast freely spills into the 2nd portion duodenum. Air Kerma is 3.22 mGy. Please see procedure report for more details. Dictated by: Dictated on workstation # [id number]
== END 2023-09-14 15:45 | disposition home or self-care (01) ==
LOC: SDC 08:51
PROVIDERS: ATTEND Surgery
DX: K80.10 Calculus of gallbladder with chronic cholecystitis without obstruction (principal); K66.0 Peritoneal adhesions (postprocedural) (postinfection); F17.210 Nicotine dependence, cigarettes, uncomplicated
CPT/HCPCS: 76000; 87081; 94664